=== PATIENT | male | born 1965 | race Caucasian/White ===

== ENCOUNTER 2020-11-04 17:55 | Outpatient (REF) | payer OTHER, SELFPAY | END 2020-11-04 17:56 | disposition home or self-care (01) | LOC: HO.LNP 17:55 | PROVIDERS: Visit Provider Family Medicine | DX: Z20.822 Contact with and (suspected) exposure to COVID-19 (principal); B34.9 Viral infection, unspecified | CPT/HCPCS: U0003; U0005 ==

== ENCOUNTER 2023-08-12 08:27 | Outpatient (AMB) | payer OTHER, SELFPAY ==
--- NOTE | 2023-08-12 08:37 | MHC.PC.OV ---
Vital Signs 08/12/23 08:50 08/12/23 09:10 Height 5 ft 9 in Weight 218 lb BMI 32.2 BP 152/80 H 104/60 Blood Pressure Location Rt brachial Lt brachial Position Sitting Sitting Respiration 13 Pulse 56 Pulse Source Pulse Oximeter Temp 97.2 F Temp Source Temporal Artery Scan Pulse Oximetry (%) 96 Oxygen Delivery Method Room Air Intake Visit Reasons: est care Intake Note: Patient is here to establish care, patient reports he has no concerns at this time. Child Care Leader Required: No Accompanied by: Self / Same As Patient Allergies No Known Allergies Allergy (Verified 08/12/23 08:59) Medication List - Last Reconciled 08/12/23 by GUSTAVO Carson No Known Home Meds Tobacco use date assessed: 08/12/23 Dental Screening Dental Screen Date: 08/12/23 Did you have a dental visit in the last 12 months?: Yes Did you have a dental problem in the last 6 months where you did not have access to dental care?: No Was dental information given to patient?: Patient has dentist HPI HPI Comments History of Present Illness Details 58 y/o M with no known medical history. Surgery - denies. Health Maintenance: Colon reports done about 10 years ago; normal as far as he knows. Referred for repeat. Specialists: None Here today to est care and for a CPE No previous medical records. [facility] Medical History (Updated 08/12/23 @ 09:57 by GUSTAVO Carson) No pertinent family history Surgical History (Updated 08/12/23 @ 09:00 by Guera Ricketts CMA) No pertinent past surgical history Social History (Updated 08/12/23 @ 08:57 by Guera Ricketts CMA) Household Members: Spouse and Children Household Members Other:: 2 grandchildren Housing: House Are you a primary child day care center worker to a significant other at home: No Do you presently have visiting nurse or other home services: No 75 years or older and lives alone: No Alcohol intake: current Alcohol intake frequency: a few times a week Alcohol type: beer Patient Tobacco Use Status: Never used Tobacco e-Cigarette/Vaping Use: Never Used Substance Use Type: Marijuana service: Yes ([employer]) Current occupational status: retired Current occupational exposures/hazards: No Gender identity: Male Cognitive needs: No Hearing needs: No Vision needs: No Questionnaire PHQ-9 Over the last 2 weeks, how often have you been bothered by any of the following problems? 1. Little interest or pleasure in doing things: not at all 2. Feeling down, depressed, or hopeless: not at all 3. Trouble falling or staying asleep, or sleeping too much: not at all 4. Feeling tired or having little energy: not at all 5. Poor appetite or overeating: not at all 6. Feeling bad about yourself - or that you are a failure or have let yourself or your family down: not at all 7. Trouble concentrating on things, such as reading the newspaper or watching television: not at all 8. Moving or speaking so slowly that other people could have noticed. Or the opposite - being so fidgety or restless that you have been moving around a lot more than usual: not at all 9. Thoughts that you would be better off or of hurting yourself in some way: not at all Total score: 0 Depression Screening Interpretation: Negative Depression Screening Done: Yes 60793 - PHQ-9 Billing: Yes Source: Developed by Drs. Ronald Kumar, Barbara Nelson, Louis Garcia and colleagues, with an educational suzette from [employer]. Thrive Questionnaire Date Thrive assessed: 08/12/23 I am a: Patient What is your living situation today?: I have a steady place to live Within the past 12 months, did the food you bought not last and you didn't have the money to get more?: Never true Within the past 12 months, did you worry whether your food would run out before you got money to buy more?: Never true Do you have trouble paying for medicines?: No Do you have trouble getting transportation to medical appointments?: No Do you have trouble paying your heating and electricity bill?: No Do you have trouble taking care of your child, family member or friend?: No Do you have trouble with day-to-day activities such as bathing, preparing meals, shopping, managing finances, etc.?: No Are you currently unemployed and looking for a job?: No Are you interested in more education?: No Please select the resources that you would like help with: None Currently or been in a relationship where the following occur: no concerns reported THRIVE Score: 0 AUDIT C Alcohol Use Questionnaire (AUDIT-C) 1. How often do you have a drink containing alcohol?: 2-3 times a week 2. How many drinks containing alcohol do you have on a typical day when you are drinking?: 1 or 2 3. How often do you have six or more drinks on one occasion?: Never Total Score: 3 Score Reviewed/Action Taken: Yes VERONICA-7 AMB Questionnaire VERONICA-7 Date VERONICA - 7 assessed: 08/12/23 Feeling nervous, anxious, or on edge: 0 = Not at all Not being able to stop or control worryin = Not at all Worrying too much about different things: 0 = Not at all Trouble relaxin = Not at all Being so restless that it is hard to sit still: 0 = Not at all Becoming easily annoyed or irritable: 0 = Not at all Feeling afraid as if something awful might happen: 0 = Not at all Total VERONICA-7 score (0-4 normal; 5-9 mild; 10-14 moderate; 15-21 severe): 0 Source: Developed by Drs. Ronald Kumar, Barbara Nelson, Louis Garcia and colleagues, with an educational suzette from [employer]. VERONICA-7 Assessment Billing VERONICA-7 Assessment Tool: VERONICA-7 Assessment 39604 Review of Systems Const Details: Constitutional: Denies fever. Skin: Denies rash. Eye: Denies eye pain. ENMT: Denies sore throat and nasal congestion. Respiratory: Denies shortness of breath and cough. Gastrointestinal: Denies nausea, vomiting or abdominal pain. Cardiovascular: Denies chest pain and syncope. Genitourinary: Denies dysuria. Musculoskeletal: Denies back pain and extremity pain. Neurologic: Denies headaches, confusion, and weakness. Psychiatric: Denies suicidal thoughts and substance abuse. Allergy/ Immunologic: Denies impaired immunity. Physical exam (Primary Care) Vital Signs: Last Vital Signs Temp 97.2 F 08/12/23 08:50 Pulse 56 08/12/23 08:50 Resp 13 08/12/23 08:50 BP 104/60 08/12/23 09:10 Pulse Ox 96 08/12/23 08:50 Oxygen Delivery Method Room Air 08/12/23 08:50 BMI result Body Mass Index 32.2 BMI Assessment/Plan discussion: High BMI High, discussed plan: lifestyle Tobacco/Smoking Status: Tobacco use Status Tobacco use date assessed 08/12/23 08/12/23 08:55 Patient Tobacco Use Status Never used Tobacco 08/12/23 08:57 e-Cigarette/Vaping Use Never Used 08/12/23 08:57 PHQ-9: PHQ-9 Score PHQ-9: Total score 0 08/12/23 09:50 Depression Screening Interpretation: Negative Thrive Assessment: Date of Thrive Assessment Date Thrive assessed 08/12/23 08/12/23 08:55 Currently or been in a relationship where the following occur: no concerns reported Advance Care Planning discussion: Exists, not on file Date of discussion: 08/12/23 Who was present: self Forms completed: Health Care Proxy and MOLST Time spent: 1-15 minutes, not on file Actual minutes spent: 10 Const Other: General: Well developed, well nourished, in no acute distress. Appears stated age. Head: Normocephalic, atraumatic. Eyes: Pupils are equal, round and reactive to light and accommodation. Conjunctivae are clear. Vision grossly normal. Ears: TMs clear AU, EACS WNL Nose: Patent, without discharge. Mouth: There are no ulcers or lesions noted. No inflammation, no post nasal drip, no plaques nor exudates. Neck: Supple, no adenopathy or thyromegaly. Lungs: Clear to auscultation bilaterally. No rales, rhonchi or wheeze noted. Good air flow in all [place]. Heart: Regular rate and rhythm. No murmurs, click, rubs or gallops are noted. Abdomen: Bowel sounds present in all quadrants. The abdomen is soft, nontender, with no masses or organomegaly noted. No hernias are noted. Musculoskeletal: Joints are nontender, without swelling, redness, or effusions. Range of motion is observed to be normal. Pulses: Peripheral pulses are equal and palpable bilaterally. Extremities: No clubbing, cyanosis nor edema is noted. Neurologic: Gait and station normal. Cranial Nerves 2-12 intact. Motor strength grossly symmetrical and intact. No sensory loss. Balance normal. Skin: No rashes, ulcers, or lesions noted. Turgor is good. Skin color is good. Hair and nails are without abnormalities. Psych: Normal eye contact, affect and mood appropriate, and normal interactions. Patient is alert and appropriate to context. Assessment and Plan Assessment & Plan (1) Routine physicl lab exam: Code(s): Z00.00 - Encounter for general adult medical examination without abnormal findings (2) Colon cancer screening: Code(s): Z12.11 - Encounter for screening for malignant neoplasm of colon (3) Laboratory exam ordered as part of routine general medical examination: Code(s): Z00.00 - Encounter for general adult medical examination without abnormal findings (4) BMI 32.0-32.9,adult: Code(s): Z68.32 - Body mass index [BMI] 32.0-32.9, adult Orders: Orders Comprehensive Met. Panel Today Z00.00 - Encounter for general adult medical examination without abnormal findings LDL Cholesterol Direct Today Z00.00 - Encounter for general adult medical examination without abnormal findings Hemoglobin A1c Today Z00.00 - Encounter for general adult medical examination without abnormal findings Microalbumin, Random (w Creat) Today Z00.00 - Encounter for general adult medical examination without abnormal findings TSH reflex Free T4 Today Z00.00 - Encounter for general adult medical examination without abnormal findings Vitamin D 1,25 dihydroxy Today Z00.00 - Encounter for general adult medical examination without abnormal findings PSA, Ultra Sensitive Today Z00.00 - Encounter for general adult medical examination without abnormal findings Referrals Gastroenterology Referral Z12.11 - Encounter for screening for malignant neoplasm of colon Patient Instructions: RTO 1 YEAR FOR CPE, SOONER PRN Health screenings for men ages 40 to 64 You should visit your health care provider regularly, even if you feel healthy. The purpose of these visits is to: Screen for medical issues Assess your risk for future medical problems Encourage a healthy lifestyle Update vaccinations and other preventive care services Help you get to know your provider in case of an illness Information Even if you feel fine, you should still see your provider for regular checkups. These visits can help you avoid problems in the future. For example, the only way to find out if you have high blood pressure is to have it checked regularly. High blood sugar and high cholesterol level also may not have any symptoms in the early stages. Simple blood tests can check for these conditions. There are specific times when you should see your provider or receive specific health screenings. The [place] Preventive Services Task Force publishes a list of recommended screenings. Below are screening guidelines for men ages 40 to 64. BLOOD PRESSURE SCREENING Have your blood pressure checked at least once every year. Watch for blood pressure screenings in your area. Ask your provider if you can stop in to have your blood pressure checked. Ask your provider if you need your blood pressure checked more often if: You have diabetes, heart disease, kidney problems, or are overweight or have certain other health conditions You have a first-degree relative with high blood pressure You are Black Your blood pressure top number is from 120 to 129 mm Hg, or the bottom number is from 70 to 79 mm Hg If the top number is 130 mm Hg or greater or the bottom number is 80 mm Hg or greater, this is considered stage 1 hypertension. Schedule an appointment with your provider to learn how you can lower your blood pressure. Effects of age on blood pressure CHOLESTEROL SCREENING Cholesterol screening should begin at age 35 for men with no known risk factors for coronary heart disease. Repeat cholesterol screening should take place: Every 5 years for men with normal cholesterol levels More often if changes occur in lifestyle (including weight gain and diet) More often if you have diabetes, heart disease, kidney problems, or certain other conditions COLORECTAL CANCER SCREENING If you are under age 45, talk to your provider about getting screened. You may need to be screened if you have a strong family history of colon cancer or polyps. Screening may also be considered if you have risk factors such as a history of inflammatory bowel disease or polyps. If you are age 45 to 75, you should be screened for colorectal cancer. There are several screening tests available: A stool-based fecal occult blood (gFOBT) or fecal immunochemical test (FIT) every year A stool sDNA test every 1 to 3 years Flexible sigmoidoscopy every 5 years or every 10 years with stool testing FIT done every year CT colonography (virtual colonoscopy) every 5 years Colonoscopy every 10 years You may need a colonoscopy more often if you have risk factors for colorectal cancer, such as: Ulcerative colitis A personal or family history of colorectal cancer A history of growths in your colon called adenomatous polyps DENTAL EXAM Go to the dentist once or twice every year for an exam and cleaning. Your dentist will evaluate if you have a need for more frequent visits. DIABETES SCREENING All adults who do not have risk factors for diabetes should be screened starting at age 35 and repeated every 3 years. If you have other risk factors for diabetes, such as a first degree relative with diabetes, overweight or obesity, high blood pressure, prediabetes, or a history of heart disease, you may be tested more often. If you are overweight and have other risk factors, such as high blood pressure and are planning to become , screening is recommended. EYE EXAM Have an eye exam every 2 to 4 years ages 40 to 54 and every 1 to 3 years ages 55 to 64. Your provider may recommend more frequent eye exams if you have vision problems or glaucoma risk. Have an eye exam that includes an examination of your retina (back of your eye) at least every year if you have diabetes. IMMUNIZATIONS Commonly needed vaccines include: Flu shot: get one every year COVID-19 vaccine: ask your provider what is best for you Tetanus-diphtheria and acellular pertussis (Tdap) vaccine: have as one of your tetanus-diphtheria vaccines if you did not receive it as an adolescent Tetanus-diphtheria: have a booster (or Tdap) every 10 years Varicella vaccine: receive 2 doses if you never had chickenpox or the varicella vaccine and were born in 1979 or after Hepatitis B vaccine: receive 2, 3, or 4 doses, depending on your exact circumstances, if you did not receive these as a child or adolescent, until age 59 Shingles (herpes zoster) vaccine: at or after age 50 Ask your provider if you should receive other immunizations, especially if you have certain medical conditions, such as diabetes or are at increased risk for some diseases such as pneumonia. INFECTIOUS DISEASE SCREENING Screening for hepatitis C: all adults ages 18 to 79 should get a one-time test for hepatitis C. Screening for human immunodeficiency virus (HIV): all people ages 15 to 65 should get a one-time test for HIV. Depending on your lifestyle and medical history, you may need to be screened for infections such as syphilis, chlamydia, and other infections. LUNG CANCER SCREENING You should have an annual screening for lung cancer with low-dose computed tomography (LDCT) if: You are age 50 to 80 years AND You have a 20 pack-year smoking history AND You currently smoke or have quit within the past 15 years OSTEOPOROSIS SCREENING If you are age 50 to 64 and have risk factors for osteoporosis, you should discuss screening with your provider. Risk factors can include long-term steroid use, low body weight, smoking, heavy alcohol use, having a fracture after age 50, or a family history of hip fracture or osteoporosis. Osteoporosis PHYSICAL EXAM All adults should visit their provider from time to time, even if they are healthy. The purpose of these visits is to: Screen for diseases Assess risk of future medical problems Encourage a healthy lifestyle Update vaccinations and other preventive care services Maintain a relationship with a provider in case of an illness Your height, weight, and body mass index (BMI) should be checked at every exam. During your exam, your provider may ask you about: Depression and anxiety Diet and exercise Alcohol and tobacco use Safety, such as use of seat belts and smoke detectors Your medicines and risk for interactions PROSTATE CANCER SCREENING If you're 55 through 69 years old, before having the test, talk to your provider about the pros and cons of having a PSA test. Ask about: Whether screening decreases your chance of dying from prostate cancer. Whether there is any harm from prostate cancer screening, such as side effects from testing or overtreatment of cancer when discovered. Whether you have a higher risk of prostate cancer than others. If you are age 55 or younger, screening is not generally recommended. You should talk with your provider about if you have a higher risk for prostate cancer. Risk factors include: Having a family history of prostate cancer (especially a brother or father) Being If you choose to be tested, the PSA blood test is repeated over time (yearly or less often), though the best frequency is not known. Prostate examinations are no longer routinely done on men with no symptoms. Prostate cancer SKIN EXAM Your provider may check your skin for signs of skin cancer, especially if you're at high risk. People at high risk include those who have had skin cancer before, have close relatives with skin cancer, or have a weakened immune system. TESTICULAR EXAM The [place] Preventive Services Task Force (USPSTF) now recommends against performing testicular self-exams. Doing testicular self-exams has been shown to have little to no benefit. Review Patient declined Pneumococcal Vaccine: 08/12/23 Flu Vaccine not done: patient reason Declined TDap/Td: 08/12/23 Coding Level of Care Code New Pt Prev Care 40-64y(76036) Diagnoses Routine physicl lab exam Z00.00 Colon cancer screening Z12.11 Laboratory exam ordered as part of routine general medical examination Z00.00 BMI 32.0-32.9,adult Z68.32 Additional Codes VERONICA-7 Assessment Billing - VERONICA-7 Assessment Tool: VERONICA-7 Assessment 49883 ([id number]) Vital Signs *Quality* - Advance Care Planning discussion: Exists, not on file ([id number]) Vital Signs *Quality* - Time spent: 1-15 minutes, not on file ([id number])
[2023-08-12 08:50] VITALS: BP 152/80; PULSE 56; RESP 13; TEMP 36.2; O2SAT 96; BMI 32.2
[2023-08-12 09:10] VITALS: BP 104/60
== END 2023-08-12 09:34 | disposition home or self-care (01) ==
PROVIDERS: PCP Nurse Practitioner Family; Visit Provider Nurse Practitioner Family
DX: Z00.00 Encounter for general adult medical examination without abnormal findings (principal); Z12.11 Encounter for screening for malignant neoplasm of colon; Z68.32 Body mass index [BMI] 32.0-32.9, adult
CPT/HCPCS: 1123F; 1124F; 99386

== ENCOUNTER 2023-08-12 09:23 | Outpatient (REF) | payer OTHER, SELFPAY ==
[2023-08-12 11:53] LABS: Estimated Average Glucose 134 mg/dL; Hemoglobin A1c % 6.3 % (<6.0)
[2023-08-12 12:15] LABS: Alanine Aminotransferase 41 U/L (0-40); Albumin Level 4.3 g/dL (3.5-5.0); Alkaline Phosphatase 59 U/L (39-117); Anion Gap 11 (12-20); Aspartate Amino Transferase 26 U/L (5-37); Bilirubin Total 0.4 mg/dL (0.0-1.0); Blood Urea Nitrogen 23 mg/dL (9-16); Calcium 9.4 mg/dL (8.4-10.2); Carbon Dioxide 25 mmol/L (22-29); Chloride 106 mmol/L (96-108); Estimated Glomerular Filt Rate > 60; Glucose Random 148 mg/dL (60-115); Potassium 4.3 mmol/L (3.3-5.1); Sodium 138 mmol/L (135-145); Total Protein 7.3 g/dL (6.5-8.0)
[2023-08-12 12:16] LABS: TSH reflex Free T4 2.35 uIU/mL (0.32-4.0)
[2023-08-12 12:29] LABS: Creatinine Urine 167.54 mg/dL; Microalbum/Creatinine Ratio Ur 2.9 ug/mg cr (<30)
[2023-08-13 14:39] LABS: LDL Cholesterol Direct 129 mg/dL (<100)
[2023-08-16 13:23] LABS: VITAMIN D (1,25 OH) D3 18 pg/mL; Vit D (1,25-Dihydroxy) Total 18 pg/mL (18-72); Vitamin D (1,25 OH) D2 <8 pg/mL
[2023-08-17 23:24] LABS: PSA, Ultra Sensitive 1.12 ng/mL
== END 2023-08-12 09:24 | disposition home or self-care (01) ==
LOC: HO.WFDLDS 09:23
PROVIDERS: Visit Provider Nurse Practitioner Family
DX: Z00.00 Encounter for general adult medical examination without abnormal findings (principal); Z12.5 Encounter for screening for malignant neoplasm of prostate
CPT/HCPCS: 36415; 80053; 82043; 82570; 82652; 83036; 83721; 84153; 84443

== ENCOUNTER 2023-12-29 08:28 | Outpatient (AMB) | payer OTHER, SELFPAY ==
--- NOTE | 2023-12-29 08:32 | MHC.PC.OV ---
Vital Signs 12/29/23 08:34 Height 5 ft 9 in Weight 215 lb BMI 31.7 BP 122/72 Blood Pressure Location Lt brachial Position Sitting Respiration 14 Pulse 58 Pulse Source Pulse Oximeter Pulse Oximetry (%) 98 Oxygen Delivery Method Room Air Intake Visit Reasons: follow up labs Intake Note: follow up on labs Allergies No Known Allergies Allergy (Verified 12/29/23 08:34) Medication List - Last Reconciled 12/29/23 by Anca Barnett, [facility] cholecalciferol (vitamin D3) 1,250 mcg PO QWEEK Tobacco use date assessed: 08/12/23 Dental Screening Dental Screen Date: 08/12/23 HPI HPI Comments History of Present Illness Details 58 y/o M with prediabetes, hyperlipidemia, Vit D Def, pre glaucoma right eye, positive rheumatoid factor, seasonal allergies, previous cocaine use, erectile dysfunction, diverticulosis, osteoarthritis of bilat hips and knees Health Maintenance: Colonoscopy 03/27/2014, 10 year recall Tdap 12/2023 Specialists: Rheum Here today to fu on chronic conditions No changes since last office visit. Due for repeat labs and will get them done today completed Vitamin D supplement No falls, ED or hospital visits. Was having left knee pain, started walking and exercising, using compression + relief. Has lost weight. Has GI repeat colon appt 01/2024 Due for Tdap Labs from 08/12/2023 show normal electrolytes, mild elevation in the BUN of 23 with normal creatinine and GFR, elevated random glucose 148, Hga1c 6.3%, elevated ALT 41 with a normal AST and alk-phos normal TSH, normal urine microalbumin creatinine ratio, direct LDL 129, low Vit d, PSA normal Exam: Awake alert NAD scleras nonicteric bilat no carotid bruit bilat MMM RRR LS CTAB Abd soft, nontender BLE hairless, skin intact, no edema Plan: Tdap today labs done today and resulted after patient left, Show normal electrolytes, normal renal function, fasting glucose of 129 with improved hemoglobin A1c 6.1%, mild elevation in his liver enzymes AST 38, ALT 49, elevated triglycerides 713, total cholesterol 349, unable able to calculate the LDL given the elevation in triglycerides, HDL 44, vitamin-D pending Patient will be called w/ results. I have sent in Rx for Atorvastatin 40mg QD. Etoh cessation is required and encouraged along w/ lifestyle mods. will review vit d levels when results are available. RTO 4 months w/ repeat labs 07/2024 for CPE This note is constructed using voice recognition software. While every effort has been made to ensure accuracy in head of insight, still errors may have been included Sometimes, these errors may affect the content or meaning of the given sentence . Total time spent caring for the patient today was 34 minutes. This includes time spent before the visit reviewing the chart, time spent during the visit, and time spent after the visit on documentation [facility] Medical History (Updated 12/29/23 @ 09:11 by [facility]H [facility] No pertinent family history Surgical History (Updated 08/12/23 @ 09:00 by Guera Ricketts CMA) No pertinent past surgical history Social History (Updated 08/12/23 @ 08:57 by Guera Ricketts CMA) Household Members: Spouse and Children Household Members Other:: 2 grandchildren Housing: House Are you a primary respiratory care assistant to a significant other at home: No Do you presently have visiting nurse or other home services: No 75 years or older and lives alone: No Alcohol intake: current Alcohol intake frequency: a few times a week Alcohol type: beer Patient Tobacco Use Status: Never used Tobacco e-Cigarette/Vaping Use: Never Used Substance Use Type: Marijuana service: Yes ([employer]) Current occupational status: retired Current occupational exposures/hazards: No Gender identity: Male Cognitive needs: No Hearing needs: No Vision needs: No Questionnaire Thrive Questionnaire Date Thrive assessed: 08/12/23 VERONICA-7 AMB Questionnaire VERONICA-7 Date VERONICA - 7 assessed: 08/12/23 Source: Developed by Drs. Ronald Kumar, Barbara Nelson, Louis Garcia and colleagues, with an educational suzette from [employer]. Physical exam (Primary Care) Vital Signs: Last Vital Signs Pulse 58 12/29/23 08:34 Resp 14 12/29/23 08:34 BP 122/72 12/29/23 08:34 Pulse Ox 98 12/29/23 08:34 Oxygen Delivery Method Room Air 12/29/23 08:34 BMI result Body Mass Index 31.7 Tobacco/Smoking Status: Tobacco use Status Tobacco use date assessed 08/12/23 12/29/23 08:37 Patient Tobacco Use Status Never used Tobacco 12/29/23 08:37 e-Cigarette/Vaping Use Never Used 12/29/23 08:37 Thrive Assessment: Date of Thrive Assessment Date Thrive assessed 08/12/23 12/29/23 08:37 Immunizations Boostrix Tdap 2.5 Lf unit-8 mcg-5 Lf/0.5 mL intramuscular syringe Performing Provider: GUSTAVO Carson Performing Location: [facility] Administered by: Zelda Lugo RN on 12/29/23 09:18 Dose Route Admin Location Dispensed Lot Number Expiration Date NDC Patient Service Specialist 0.5 mL IM Left Deltoid 0.5 mL [id number] 02/01/26 [id number] [employer] VIS Given Date VIS Provided VIS Publication Date 12/29/23 Single Vaccine 20 Eligibility Eligibility Date Funding Source Not VFC Eligible 12/29/23 Private Assessment and Plan Assessment & Plan (1) Hyperlipidemia: Code(s): E78.5 - Hyperlipidemia, unspecified Qualifiers: Hyperlipidemia type: moderate mixed hyperlipidemia not requiring statin therapy Qualified Code(s): E78.2 - Mixed hyperlipidemia (2) Vitamin D deficiency: Code(s): E55.9 - Vitamin D deficiency, unspecified (3) Prediabetes: Comment: 07/2023 hga1c 6.3% Code(s): R73.03 - Prediabetes Orders: Orders TDaP Immunization Today Z23 - Encounter for immunization Comprehensive [place]. Panel Fast 04/26/24 E55.9 - Vitamin D deficiency, unspecified, E78.2 - Mixed hyperlipidemia, R73.03 - Prediabetes Lipid Panel 04/26/24 E55.9 - Vitamin D deficiency, unspecified, E78.2 - Mixed hyperlipidemia, R73.03 - Prediabetes Hemoglobin A1c 04/26/24 E55.9 - Vitamin D deficiency, unspecified, E78.2 - Mixed hyperlipidemia, R73.03 - Prediabetes Medications: New atorvastatin 40 mg PO BEDTIME 90 tabs 1RF Review Flu Vaccine not done: patient reason Coding Level of Care Code Est Pt Level 4 (97261) Diagnoses Moderate mixed hyperlipidemia not requiring statin therapy E78.2 Hyperlipidemia type: moderate mixed hyperlipidemia not requiring statin therapy Vitamin D deficiency E55.9 Prediabetes R73.03
[2023-12-29 08:34] VITALS: BP 122/72; PULSE 58; RESP 14; O2SAT 98; BMI 31.7
== END 2023-12-29 09:22 | disposition home or self-care (01) ==
PROVIDERS: PCP Nurse Practitioner Family; Visit Provider Nurse Practitioner Family
DX: E78.2 Mixed hyperlipidemia (principal); E55.9 Vitamin D deficiency, unspecified; R73.03 Prediabetes; Z23 Encounter for immunization
CPT/HCPCS: 90471; 90715; 99214

== ENCOUNTER 2023-12-29 09:18 | Outpatient (REF) | payer OTHER, SELFPAY ==
[2023-12-29 11:30] LABS: Estimated Average Glucose 128 mg/dL; Hemoglobin A1c % 6.1 % (<6.0)
[2023-12-29 11:39] LABS: Alanine Aminotransferase 49 U/L (0-40); Albumin Level 4.3 g/dL (3.5-5.0); Alkaline Phosphatase 65 U/L (39-117); Anion Gap 15 (12-20); Aspartate Amino Transferase 38 U/L (5-37); Bilirubin Total 0.3 mg/dL (0.0-1.0); Blood Urea Nitrogen 17 mg/dL (9-16); Calcium 9.7 mg/dL (8.4-10.2); Carbon Dioxide 22 mmol/L (22-29); Chloride 107 mmol/L (96-108); Cholesterol 349 mg/dL (<200); Estimated Glomerular Filt Rate > 60; Glucose Fasting 129 mg/dL (60-99); HDL Cholesterol 44 mg/dL (>40); Potassium 4.9 mmol/L (3.3-5.1); Sodium 139 mmol/L (135-145); Total Protein 7.4 g/dL (6.5-8.0); Triglycerides 713 mg/dL (<150)
[2024-01-02 13:32] LABS: VITAMIN D (1,25 OH) D3 26 pg/mL; Vit D (1,25-Dihydroxy) Total 26 pg/mL (18-72); Vitamin D (1,25 OH) D2 <8 pg/mL
== END 2023-12-29 09:19 | disposition home or self-care (01) ==
LOC: HO.WFDLDS 09:18
PROVIDERS: Visit Provider Nurse Practitioner Family
DX: R73.03 Prediabetes (principal); E55.9 Vitamin D deficiency, unspecified; E78.5 Hyperlipidemia, unspecified
CPT/HCPCS: 36415; 80053; 80061; 82652; 83036

== ENCOUNTER 2024-02-10 09:22 | Outpatient (AMB) | payer OTHER, SELFPAY ==
[2024-02-10 09:25] VITALS: BP 166/77; PULSE 51; BMI 31.9
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
== END 2024-02-10 10:10 | disposition home or self-care (01) ==
PROVIDERS: PCP Nurse Practitioner Family; Visit Provider Nurse Practitioner
DX: Z83.719 Family history of colon polyps, unspecified (principal)
CPT/HCPCS: 99203

== ENCOUNTER → 2024-02-10 09:22 | Outpatient (BNVA) | payer OTHER, SELFPAY | PROVIDERS: PCP Nurse Practitioner Family; Visit Provider Nurse Practitioner | DX: Z01.818 Encounter for other preprocedural examination (principal); Z83.719 Family history of colon polyps, unspecified | CPT/HCPCS: 99202 ==

== ENCOUNTER 2024-05-01 08:25 | Outpatient (AMB) | payer OTHER, SELFPAY ==
--- NOTE | 2024-05-01 08:29 | MHC.PC.OV ---
Vital Signs 05/01/24 08:32 Height 5 ft 9 in Weight 224 lb 2 oz BMI 33.1 BP 137/76 Blood Pressure Location Lt brachial Position Sitting Respiration 13 Pulse 60 Pulse Source Pulse Oximeter Pulse Oximetry (%) 96 Oxygen Delivery Method Room Air Intake Visit Reasons: 4 MONTHS FU 30 MIN CHRONIC CONDITIONS Intake Note: 4 month follow up Internetworking Technician Required: No Allergies No Known Allergies Allergy (Verified 05/01/24 08:41) Medication List - Last Reconciled 05/01/24 by ASHUTOSH Carson- atorvastatin 40 mg PO BEDTIME multivitamin 1 tab PO DAILY sodium,potassium,mag sulfates 17.5-3.13-1.6 gram (Suprep Bowel Prep Kit) 480 mL orally; FOR COLONOSCOPY PREP Tobacco use date assessed: 08/12/23 Dental Screening Dental Screen Date: 08/12/23 HPI HPI Comments History of Present Illness Details 59 y/o M with prediabetes, hyperlipidemia, Vit D Def, pre glaucoma right eye, positive rheumatoid factor, seasonal allergies, previous cocaine use, erectile dysfunction, diverticulosis, osteoarthritis of bilat hips and knees Health Maintenance: Colonoscopy 03/27/2014, 10 year recall; colon scheduled 05/2024 @ [facility] Tdap 12/2023 Flu declined ACP: MOLST completed today. Healthcare proxy need signature from the primary in the alternate agent. He will bring this with him to the next office visit. Specialists: Rhe[facility] Gi History of Present Illness The patient is a 59-year-old male presenting with prediabetes and hyperlipidemia for follow-up care. He has a history of vitamin D deficiency, which has been managed with a completed course of vitamin D supplementation; he was advised to start a daily multivitamin however he has not done this yet. There have been no significant health changes in recent months, with the patient successfully maintaining his condition through the holidays despite dietary indulgences. His hemoglobin A1c has remained stable at 6.1% over the past several months, showing no progression towards diabetes. He is currently prescribed atorvastatin for hyperlipidemia. However, he reports inconsistent use, as he is still adjusting to the medication. No hospitalizations or emergency room visits have occurred since the last follow-up. Health Maintenance - Encourage regular exercise, considering his interest in using an [employer] machine. - Colonoscopy scheduled for May as per health maintenance guidelines. - Monitoring of hemoglobin A1c with current result at 6.1% indicating stable prediabetes. - Discussion about possible insurance-covered wellness benefits such as gym memberships. Social History - Semi-retired, with involvement in the care of grandchildren. - Indulged in rich foods during holidays, particularly prime rib. - Engages in some form of exercise with an elliptical at home. - Interest in establishing a routine for physical activity. Review of Systems - General: Denies recent hospitalizations or emergency room visits. - Endocrine: Denies symptoms progressing towards diabetes. - Cardiovascular: Denies chest pain or shortness of breath. - Pulm: Reports exposure to asbestos in the past. Wonders about any screening that can be done. Denies any current pulmonary complaints. General: Well developed, well nourished, in no acute distress. Appears stated age. Head: Normocephalic, atraumatic. Eyes: Pupils are equal, round and reactive to light and accommodation. Conjunctivae are clear. Vision grossly normal. Ears: TMs clear AU, EACS WNL Nose: Patent, without discharge. Mouth: There are no ulcers or lesions noted. No inflammation, no post nasal drip, no plaques nor exudates. Neck: Supple, no adenopathy or thyromegaly. Lungs: Clear to auscultation bilaterally. No rales, rhonchi or wheeze noted. Good air flow in all delacruz. Heart: Regular rate and rhythm. No murmurs, click, rubs or gallops are noted. Abdomen: Bowel sounds present in all quadrants. The abdomen is soft, nontender, with no masses or organomegaly noted. No hernias are noted. Musculoskeletal: Joints are nontender, without swelling, redness, or effusions. Range of motion is observed to be normal. Pulses: Peripheral pulses are equal and palpable bilaterally. Extremities: No clubbing, cyanosis nor edema is noted. Neurologic: Gait and station normal. Cranial Nerves 2-12 intact. Motor strength grossly symmetrical and intact. No sensory loss. Balance normal. Skin: No rashes, ulcers, or lesions noted. Turgor is good. Skin color is good. Hair and nails are without abnormalities. Psych: Normal eye contact, affect and mood appropriate, and normal interactions. Patient is alert and appropriate to context. Results - Labs: Hemoglobin A1c - 6.1% (stable from previous levels). Labs resulted today show elevated LFTs, worsening lipid profile. The triglycerides are elevated however this was a nonfasting sample. Otherwise labs stable. Vitamin-D pending. Plan - Continue monitoring prediabetes status with encouragement for stable diet and exercise routine. - Maintain current atorvastatin dose for hyperlipidemia, as inconsistent use precludes assessment for dosage increase. - Recommend men's once-daily multivitamin for vitamin D maintenance. - Encourage utilization of available exercise equipment to establish a consistent routine. - Conduct colonoscopy as scheduled in May. - Consider further consultation with pulmonology due to past asbestos exposure, pending patient's decision. - reduce alcohol intake Patient was informed and verbally consented to the use of an ambient scribe for clinic note documentation during this visit. Discussion Notes During the visit, we discussed the stable nature of the patient's prediabetes, with a hemoglobin A1c of 6.1%, unchanged from prior measurements. I advised that maintaining stable dietary habits and exercise could further support his condition. We reviewed his inconsistent use of atorvastatin and opted to maintain the current dosage pending regular use before lab review. Risks of long-term statin use were detailed, emphasizing common side effects like muscle aches and the lack of substantiated risks of cognitive decline or severe bone health effects given the patient's age. We discussed health maintenance, including a once-daily multivitamin and utilization of available wellness benefits offered by insurance. We also touched on asbestos exposure, indicating the option for a pulmonology referral if he desired. Follow-up steps involve remaining engaged with regular lab work and upcoming screenings. Return to the office in 6 months for CPE, sooner as needed. This note is constructed using voice recognition software. While every effort has been made to ensure accuracy in security services manager, still errors may have been included Sometimes, these errors may affect the content or meaning of the given sentence . Total time spent caring for the patient today was 40 minutes. This includes time spent before the visit reviewing the chart, time spent during the visit, and time spent after the visit on documentation [facility] Medical History (Updated 05/01/24 @ 13:45 [facility] Colon cancer screening Laboratory exam ordered as part of routine general medical examination Routine physicl lab exam No pertinent family history Surgical History (Updated 02/10/24 @ 09:29 by MARIA TERESA Alvarez) Hx of colonoscopy No pertinent past surgical history Social History (Reviewed 02/10/24 @ 09:29 by JULIA Alvarez Household Members: Spouse and Children Household Members Other:: 2 grandchildren Housing: House Are you a primary career guidance technician to a significant other at home: No Do you presently have visiting nurse or other home services: No Alcohol intake: current Alcohol intake frequency: a few times a week Alcohol type: beer Patient Tobacco Use Status: Never used Tobacco e-Cigarette/Vaping Use: Never Used Substance Use Type: Marijuana service: Yes ([employer]) Current occupational status: retired Current occupational exposures/hazards: No Gender identity: Male Cognitive needs: No Hearing needs: No Vision needs: No Questionnaire PHQ-9 Over the last 2 weeks, how often have you been bothered by any of the following problems? 1. Little interest or pleasure in doing things: not at all 2. Feeling down, depressed, or hopeless: not at all 3. Trouble falling or staying asleep, or sleeping too much: not at all 4. Feeling tired or having little energy: not at all 5. Poor appetite or overeating: not at all 6. Feeling bad about yourself - or that you are a failure or have let yourself or your family down: not at all 7. Trouble concentrating on things, such as reading the newspaper or watching television: not at all 8. Moving or speaking so slowly that other people could have noticed. Or the opposite - being so fidgety or restless that you have been moving around a lot more than usual: not at all 9. Thoughts that you would be better off or of hurting yourself in some way: not at all Total score: 0 Depression Screening Interpretation: Negative Depression Screening Done: Yes 69724 - PHQ-9 Billing: Yes Source: Developed by Drs. Ronald Kumar, Barbara Nelson, Louis Garcia and colleagues, with an educational suzette from [employer]. Thrive Questionnaire Date Thrive assessed: 05/01/24 I am a: Patient What is your living situation today?: I have a steady place to live Within the past 12 months, did the food you bought not last and you didn't have the money to get more?: Never true Within the past 12 months, did you worry whether your food would run out before you got money to buy more?: Never true Do you have trouble paying for medicines?: No Do you have trouble getting transportation to medical appointments?: No Do you have trouble paying your heating and electricity bill?: No Do you have trouble taking care of your child, family member or friend?: No Do you have trouble with day-to-day activities such as bathing, preparing meals, shopping, managing finances, etc.?: No Are you currently unemployed and looking for a job?: Yes Are you interested in more education?: No Please select the resources that you would like help with: None Currently or been in a relationship where the following occur: No concerns reported THRIVE Score: 0 AUDIT C Alcohol Use Questionnaire (AUDIT-C) 1. How often do you have a drink containing alcohol?: 2-4 times a month 2. How many drinks containing alcohol do you have on a typical day when you are drinking?: 3 or 4 3. How often do you have six or more drinks on one occasion?: Never Total Score: 3 Score Reviewed/Action Taken: Yes VERONICA-7 AMB Questionnaire VERONICA-7 Date VERONICA - 7 assessed: 05/01/24 Feeling nervous, anxious, or on edge: 0 = Not at all Not being able to stop or control worryin = Not at all Worrying too much about different things: 0 = Not at all Trouble relaxin = Not at all Being so restless that it is hard to sit still: 0 = Not at all Becoming easily annoyed or irritable: 0 = Not at all Feeling afraid as if something awful might happen: 0 = Not at all Total VERONICA-7 score (0-4 normal; 5-9 mild; 10-14 moderate; 15-21 severe): 0 Source: Developed by Drs. Ronald Kumar, Barbara Nelson, Louis Garcia and colleagues, with an educational suzette from [employer]. VERONICA-7 Assessment Billing VERONICA-7 Assessment Tool: VERONICA-7 Assessment 11595 Physical exam (Primary Care) Vital Signs: Last Vital Signs Pulse 60 05/01/24 08:32 Resp 13 05/01/24 08:32 BP 137/76 05/01/24 08:32 Pulse Ox 96 05/01/24 08:32 Oxygen Delivery Method Room Air 05/01/24 08:32 BMI result Body Mass Index 33.1 BMI Assessment/Plan discussion: High BMI High, discussed plan: lifestyle Tobacco/Smoking Status: Tobacco use Status Tobacco use date assessed 08/12/23 05/01/24 08:32 Patient Tobacco Use Status Never used Tobacco 05/01/24 08:32 e-Cigarette/Vaping Use Never Used 05/01/24 08:32 PHQ-9: PHQ-9 Score PHQ-9: Total score 0 05/01/24 09:06 Depression Screening Interpretation: Negative Thrive Assessment: Date of Thrive Assessment Date Thrive assessed 05/01/24 05/01/24 08:32 Currently or been in a relationship where the following occur: No concerns reported Advance Care Planning discussion: Completed/Scanned Date of discussion: 05/01/24 Who was present: self Forms completed: Health Care Proxy and MOLST Time spent: 1-15 minutes, not on file Actual minutes spent: 10 Results AMB Hemoglobin A1c AMB Hemoglobin A1c 6.1 % Last Edit by Daniela Spain MA on 05/01/24 08:43 Results Reviewed Results Reviewed: Laboratory Last Values Hgb A1c (Clinic) 6.1 % (4.0-6.0) H 05/01/24 08:35 Coding Level of Care Code Est Pt Level 5 (69470) Complex EM visit Add On G2211 Diagnoses Moderate mixed hyperlipidemia not requiring statin therapy E78.2 Hyperlipidemia type: moderate mixed hyperlipidemia not requiring statin therapy Vitamin D deficiency E55.9 Prediabetes R73.03 Family history of polyps in the colon Z83.719 BMI 33.0-33.9,adult Z68.33 Class 1 obesity due to excess calories with serious comorbidity and body mass index (BMI) of 33.0 to 33.9 in adult E66.811; E66.09; Z68.33 Obesity type: due to excess calories Serious obesity comorbidity presence: with serious comorbidity ACP (advance care planning) Z71.89 Full code status Z78.9 Physician orders for life-sustaining treatment (POLST) form indicates patient wish for full code resuscitation status Z78.9 Asbestos exposure Z77.090 Additional Codes VERONICA-7 Assessment Billing - VERONICA-7 Assessment Tool: VERONICA-7 Assessment 94490 ([id number]) PHQ-9 - 83611 - PHQ-9 Billing: Yes ([id number]) Vital Signs *Quality* - Advance Care Planning discussion: Completed/Scanned ([id number]) Vital Signs *Quality* - Time spent: 1-15 minutes, not on file ([id number]) Assessment & Plan Assessment & Plan (1) Hyperlipidemia: Code(s): E78.5 - Hyperlipidemia, unspecified Category: Medical Qualifiers: Hyperlipidemia type: moderate mixed hyperlipidemia not requiring statin therapy Qualified Code(s): E78.2 - Mixed hyperlipidemia (2) Vitamin D deficiency: Code(s): E55.9 - Vitamin D deficiency, unspecified Category: Medical (3) Prediabetes: Code(s): R73.03 - Prediabetes Category: Medical (4) Family history of polyps in the colon: Comment: mother one polyp later in life Code(s): Z83.719 - Family history of colon polyps, unspecified Category: Medical (5) BMI 33.0-33.9,adult: Code(s): Z68.33 - Body mass index [BMI] 33.0-33.9, adult Category: Medical (6) Class 1 obesity with body mass index (BMI) of 33.0 to 33.9 in adult: Comment: HLD Code(s): E66.811 - Obesity, class 1; Z68.33 - Body mass index [BMI] 33.0-33.9, adult Category: Medical Qualifiers: Obesity type: due to excess calories Serious obesity comorbidity presence: with serious comorbidity Qualified Code(s): E66.811 - Obesity, class 1; E66.09 - Other obesity due to excess calories; Z68.33 - Body mass index [BMI] 33.0-33.9, adult (7) ACP (advance care planning): Code(s): Z71.89 - Other specified counseling Category: Medical (8) Full code status: Code(s): Z78.9 - Other specified health status Category: Medical (9) Physician orders for life-sustaining treatment (POLST) form indicates patient wish for full code resuscitation status: Code(s): Z78.9 - Other specified health status Category: Medical (10) Asbestos exposure: Code(s): Z77.090 - Contact with and (suspected) exposure to asbestos Category: Medical Plan . Orders: Orders Comprehensive Met. Panel Today E55.9 - Vitamin D deficiency, unspecified, E66.811 - Obesity, class 1, E78.2 - Mixed hyperlipidemia, R73.03 - Prediabetes, Z68.33 - Body mass index [BMI] 33.0-33.9, adult AMB Hemoglobin A1c Today Z13.9 - Encounter for screening, unspecified Vitamin D 1,25 dihydroxy Today E55.9 - Vitamin D deficiency, unspecified, E66.811 - Obesity, class 1, E78.2 - Mixed hyperlipidemia, R73.03 - Prediabetes, Z68.33 - Body mass index [BMI] 33.0-33.9, adult Patient Instructions: Patient Instructions - Continue with prescribed atorvastatin, aim for regular daily intake. - Take a men's once-daily multivitamin with food. - Maintain diet and exercise routine to support stable blood sugar and cholesterol levels. - Schedule and attend the colonoscopy in May. - Consider contacting the office regarding further evaluation for asbestos exposure if desired. - Review wellness benefits through insurance for potential gym membership or exercise program support. - Follow up after lab results or sooner if new symptoms occur.
[2024-05-01 08:32] VITALS: BP 137/76; PULSE 60; RESP 13; O2SAT 96; BMI 33.1
== END 2024-05-01 09:09 | disposition home or self-care (01) ==
PROVIDERS: PCP Nurse Practitioner Family; Visit Provider Nurse Practitioner Family
DX: E78.2 Mixed hyperlipidemia (principal); E55.9 Vitamin D deficiency, unspecified; R73.03 Prediabetes; Z83.719 Family history of colon polyps, unspecified; Z68.33 Body mass index [BMI] 33.0-33.9, adult; E66.811 Obesity, class 1; Z71.89 Other specified counseling; Z78.9 Other specified health status; Z77.090 Contact with and (suspected) exposure to asbestos; Z00.00 Encounter for general adult medical examination without abnormal findings

== ENCOUNTER → 2024-05-01 08:25 | Outpatient (BNVA) | payer OTHER, SELFPAY | PROVIDERS: PCP Nurse Practitioner Family; Visit Provider Nurse Practitioner Family | DX: R73.03 Prediabetes (principal); E78.2 Mixed hyperlipidemia; E55.9 Vitamin D deficiency, unspecified; N52.9 Male erectile dysfunction, unspecified; K57.90 Diverticulosis of intestine, part unspecified, without perforation or abscess without bleeding; M17.0 Bilateral primary osteoarthritis of knee; M16.0 Bilateral primary osteoarthritis of hip; E66.811 Obesity, class 1; Z68.33 Body mass index [BMI] 33.0-33.9, adult; Z71.89 Other specified counseling; Z78.9 Other specified health status; Z77.090 Contact with and (suspected) exposure to asbestos; Z83.719 Family history of colon polyps, unspecified | CPT/HCPCS: 83036; 96127; 99212 ==

== ENCOUNTER 2024-05-01 09:35 | Outpatient (REF) | payer OTHER, SELFPAY ==
[2024-05-01 13:12] LABS: Alanine Aminotransferase 102 U/L (0-40); Albumin Level 4.3 g/dL (3.5-5.0); Alkaline Phosphatase 66 U/L (39-117); Anion Gap 14 (12-20); Aspartate Amino Transferase 90 U/L (5-37); Bilirubin Total 0.5 mg/dL (0.0-1.0); Blood Urea Nitrogen 24 mg/dL (9-16); Calcium 9.5 mg/dL (8.4-10.2); Carbon Dioxide 24 mmol/L (22-29); Chloride 104 mmol/L (96-108); Cholesterol 382 mg/dL (<200); Estimated Glomerular Filt Rate > 60; Glucose Random 140 mg/dL (60-115); HDL Cholesterol 38 mg/dL (>40); Potassium 4.5 mmol/L (3.3-5.1); Sodium 137 mmol/L (135-145); Total Protein 7.4 g/dL (6.5-8.0); Triglycerides 1344 mg/dL (<150)
[2024-05-05 14:43] LABS: VITAMIN D (1,25 OH) D3 19 pg/mL; Vit D (1,25-Dihydroxy) Total 19 pg/mL (18-72); Vitamin D (1,25 OH) D2 <8 pg/mL
== END 2024-05-01 09:36 | disposition home or self-care (01) ==
LOC: HO.WFDLDS 09:35
PROVIDERS: Visit Provider Nurse Practitioner Family
DX: E78.2 Mixed hyperlipidemia (principal); E55.9 Vitamin D deficiency, unspecified; R73.03 Prediabetes; E66.811 Obesity, class 1; Z68.33 Body mass index [BMI] 33.0-33.9, adult
CPT/HCPCS: 36415; 80053; 80061; 82652

== ENCOUNTER 2024-06-06 09:02 | Day surgery (SDC) | payer OTHER, SELFPAY ==
[2024-06-06 10:09] VITALS: BP 138/81; PULSE 63; RESP 12; TEMP 36.6; O2SAT 95; BMI 31.7
[2024-06-06] MEDS: Lactated Ringers 1,000 ML 80 ML IVCONT (10:24)
--- NOTE | 2024-06-06 10:31 | P.HPSUR_ITS ---
Pre-Procedural Eval Section A - 24 Hr Update-Section A only Date of Service: 06/06/24 Section B - Complete if H&P > 30 days Chief Complaint: Family history of colon polyps, Details of Present Illness: PMX Pre diabetes High cholesterol Obesity * SURGICAL HISTORY Colonoscopy - 10 years ago at [facility] study only tics * ALLERGIES: NKDA Present Medications: see Short Stay Collaborative assessment Allergies: Allergies Allergy/AdvReac Type Severity Reaction Status Date / Time No Known Allergies Allergy Verified 06/06/24 10:08 Review of Systems Review of Systems Comment: Ten point ROS negative Exam Exam Comment: Gen appear: No acute distress HEENT: no icterus Chest: No overt resp distress Abd: soft, nontender, nondistended Psych: Stable affect, answering questions appropriately Neuro: A/Ox3 noted to move all extremities spontaneously Ext: no peripheral edema Plan Diagnosis/Plan: Unchanged I have reviewed the history and physical and performed a pertinent physical examination on my patient. No changes have occurred unless specified. Time Spent With Patient Time: Total time managing care of this patient today ____ minutes.
--- NOTE | 2024-06-06 10:52 | HO.ANESPROP2 ---
[facility] Active Problems Active Problems: All Active Problems Asbestos exposure (Acute) Physician orders for life-sustaining treatment (POLST) form indicates patient wish for full code resuscitation status (Acute) Full code status (Acute) ACP (advance care planning) (Acute) Class 1 obesity with body mass index (BMI) of 33.0 to 33.9 in adult (Acute) BMI 33.0-33.9,adult (Acute) Family history of polyps in the colon (Acute) Pre-op examination (Acute) Hyperlipidemia (Acute) Vitamin D deficiency (Acute) Prediabetes (Acute) Past Medical History Medical History Colon cancer screening Laboratory exam ordered as part of routine general medical examination Routine physicl lab exam No pertinent family history Functional capacity: independent ambulation Family History Family history of problems with anesthesia: No Surgical History Surgical History Hx of colonoscopy No pertinent past surgical history History of Problems with Anesthesia: No Social History Social History Household Members: Spouse and Children Household Members Other:: 2 grandchildren Housing: House Are you a primary patient care technician instructor to a significant other at home: No Do you presently have visiting nurse or other home services: No Alcohol intake: current Alcohol intake frequency: 0-2 drinks per day Alcohol type: beer Patient Tobacco Use Status: Never used Tobacco e-Cigarette/Vaping Use: Never Used Use of substances other than those prescribed or required for medical reasons: Yes Substance Use Type: Marijuana Substance Use Frequency: Daily Have you been hit, kicked, punched, or otherwise hurt by someone within the past year? If so, by whom?: No Are you DNR?: No Advance Directives: No Advance Directives Information Provided: Yes Recently lost weight without trying: No Nutrition Risks: No Nutritional Risk Poor oral hygiene: No service: Yes ([employer]) Current occupational status: retired Current occupational exposures/hazards: No Gender identity: Male Cognitive needs: No Hearing needs: No Vision needs: No Meds Allergies Allergy/AdvReac Type Severity Reaction Status Date / Time No Known Allergies Allergy Verified 06/06/24 10:08 Active Medications: Current Medications Lactated Ringer's (Lr) 1,000 mls @ 80 mls/hr IVCONT .[id number] Last Admin: 06/06/24 10:24 Dose: 80 mls/hr Home Medications ?Medication ?Instructions ?Recorded ?Confirmed ?Last Taken ?Type multivitamin 1 tab PO DAILY 05/01/24 06/06/24 Unknown History Exam Height,Weight and Vital Signs: Height 5 ft 9 in Weight 97.522 kg Last Vital Signs Temp 97.9 F 06/06/24 10:09 Pulse 63 06/06/24 10:09 Resp 12 06/06/24 10:09 BP 138/81 06/06/24 10:09 Pulse Ox 95 06/06/24 10:09 O2 Del Method Room Air 06/06/24 10:09 Airway Mallampati Class: III TM Dist: >3cm Neck ROM: Full Heart: RRR Lungs: CTA Assessment and Plan Assessment Anesthesia Assessment: Anesthesia Plan Discussed and Chart Reviewed Final Anesthetic Review Family History of Problems with Anesthesia: No History of Problems with Anesthesia: No NPO: Yes ASA Class: II Final Preanesthetic Review: Meds/Allgs Chart Reviewed, Consent Obtained/Reviewed and Anes Risks/Benef Reviewed Patient Risk: Low Procedure Risk: Low Anesthetic Plan Anesthetic Plan: MAC: Disposition: Standard PACU
--- NOTE | 2024-06-06 11:14 | P.OPN-COLO_ITS ---
Colonoscopy Operative Note Operative Note Date of Service: 06/06/24 Narrative: Procedure: Colonoscopy Indication: Screening Endoscopist: Caty Zambrano MD Anesthesia Provider: Dr Cici Barrow Anesthesia type: MAC Instrument: Olympus [id number]-[id number] Consent: Indication, risks vs benefits, and alternatives were discussed with the patient who gave written informed consent to proceed. EKG, pulse, pulse oximetry and blood pressure were monitored throughout the procedure. Please see anesthesia flowsheet. Procedure: The patient was brought to the procedure room and placed in the left lateral decubitus position. IV medications were administered by the anesthesia provider in attendance. A digital rectal exam was performed which was normal. A distal attachment cap was affixed to the tip of the colonoscope which was then inserted through the anus and advanced through the colon to the cecum at 75 cm,and terminal ileum. Appendiceal orifice and ileocecal valve were identified. Mucosa was carefully examined under high definition white light as the instrument was slowly withdrawn in a retrograde panoramic fashion. Retroflexion was performed in ascending colon and rectum. The procedure was not difficult. There were no immediate obvious complications. The quality of the prep was BBPS: 2+2+3 = adequate Withdrawal time 12 minutes. Limitations: No limitations. Findings: Mucosa: Normal to cecum and terminal ileum. Liquid adherent stool in R colon. Protruding lesions: * Medium internal hemorrhoids without stigmata of recent bleeding. Excavated lesions: * Mild diverticulosis of left sided colon. Impression: 1. Normal colon and terminal ileum mucosa 2. Diverticulosis 3. Internal hemorrhoids Recommendations: - Repeat colonoscopy in 5 years due to quality of prep.
[2024-06-06 11:15] VITALS: BP 111/71; PULSE 57; RESP 16; TEMP 36.3; O2SAT 95
[2024-06-06 11:30] VITALS: BP 123/81; PULSE 51; RESP 16; TEMP 36.1; O2SAT 98
== END 2024-06-06 12:17 | disposition home or self-care (01) ==
PROVIDERS: PCP Nurse Practitioner Family; Visit Provider Internal Medicine
PROC: 0DJD8ZZ Inspection of Lower Intestinal Tract, Via Natural or Artificial Opening Endoscopic (ICD-10-PCS; CPT 45378; principal; 2024-06-06 11:00)
DX: Z12.11 Encounter for screening for malignant neoplasm of colon (principal); K64.8 Other hemorrhoids; K57.30 Diverticulosis of large intestine without perforation or abscess without bleeding; Z83.719 Family history of colon polyps, unspecified; E11.9 Type 2 diabetes mellitus without complications; E78.5 Hyperlipidemia, unspecified; E55.9 Vitamin D deficiency, unspecified; Z79.02 Long term (current) use of antithrombotics/antiplatelets; Z79.899 Other long term (current) drug therapy
CPT/HCPCS: 45378; J2003; J2704

== ENCOUNTER → 2024-06-06 09:02 | Outpatient (BNV) | payer OTHER, SELFPAY | PROVIDERS: PCP Nurse Practitioner Family; Visit Provider Internal Medicine | DX: Z12.11 Encounter for screening for malignant neoplasm of colon (principal); K57.30 Diverticulosis of large intestine without perforation or abscess without bleeding; K64.8 Other hemorrhoids | CPT/HCPCS: 45378 ==

== ENCOUNTER 2024-09-21 11:18 | Outpatient (AMB) | payer OTHER, SELFPAY ==
--- NOTE | 2024-09-21 11:22 | A.OFFPC_ITS ---
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 Allergies No Known Allergies Allergy (Verified 09/21/24 11:31) Medication List - Last Reconciled 09/21/24 by ASHUTOSH Carson- atorvastatin 40 mg PO BEDTIME multivitamin 1 tab PO DAILY Tobacco use date assessed: 09/21/24 Dental Screening Dental Screen Date: 09/21/24 Did you have a dental visit in the last 12 months?: Yes Did you have a dental problem in the last 6 months where you did not have access to dental care?: No Was dental information given to patient?: Patient has dentist HPI HPI Comments 2 History of Present Illness0 Details 59 y/o M with prediabetes, hyperlipidemi a, Vit D Def, pre glaucoma right eye, positive rheumatoid factor, seasonal allergies, previous cocaine use, erectile dysfunction, diverticulosis, osteoarthritis of bilat hips and knees Family hx: son had a stroke; may need heart surgery. otherwise no changes Social: , has children, semi-retired; has custody of sons children Health Maintenance: Colonoscopy 05/06/24 Normal colon and terminal ileum mucosa, Diverticulosis, Internal hemorrhoids repeat colonoscopy in 5 years due to quality of prep. Tdap 12/2023 Flu declined ACP: MOLST completed today. Healthcare proxy need signature from the primary in the alternate agent. He will bring this with him to the next office visit. Specialists: Rheum Gi Specialists: Rheum in the past History of Present Illness - The patient is a 59-year-old male pres enting for a complete physical exam. - Hyperlipidemia: On atorvastatin 40 mg daily, with noted non-adherence. - Vitamin D deficiency: Taking a multivi tamin for supplementation. - Prediabetes: Managed with diet; A1c is 6.3%. today - Skin - Left arm he has had areas re moved from right side of nose in the past - unsure of patho. Mom had skin cancer, nonmelanoma -Optho wears glasses, last exam a few ye ars ago. No issues Health Maintenance - A1c today was 6.3%; previously 6.1% in April, and 6.3% in July 2023. - Colonoscopy completed, with a follow-u p recommended in five years due to suboptimal prep. - Patient advised on the importance of c onsistent atorvastatin intake and fluid consumption. Review of Systems - Constitutional: Denies any significant weight change or fatigue. Reports occasional dizziness with position change, possibly due to low fluid intake. - Expressed sadness due to a family memb er's health situation - Eyes: Reports no vision issues, althou gh last eye exam was a couple of years ago. - Skin: Reports a suspicious lesion on t he left arm. - Cardiovascular: Reports occasional diz ziness with position changes. - Gastrointestinal: Reports occasional c onstipation. Physical Exam See below. Left Antecubital Left ankle Right lower leg Results - Labs: A1c is 6.3%, Discussion Notes I discussed the importance of managing hyperlipidemia and prediabetes with the patient, emphasizing adherence to medication and dietary modifications. We talked about the need for further dermatological evaluation of the suspicious skin lesion, with a referral to [facility] provided. I explained the significance of consistent atorvastatin usage and encouraged increased fluid intake to help prevent dizziness. I also acknowledged the patient's emotional state regarding family issues and offered support. The patient consented to repeat labs to evaluate cholesterol levels and kidney function. Assessment and Plan 1. Hyperlipidemia - Adherence to atorvastatin; repeat chol esterol labs today. 2. Vitamin D deficiency - Continue multivitamin. 3. Prediabetes - A1c 6.3%; manage with diet/lifestyle. 4. Basal cell carcinoma - Suspected lesion; refer to dermatology . Patient Instructions - Take atorvastatin daily as prescribed. - Continue with multivitamin daily. - Follow dietary and lifestyle recommend ations to manage blood sugar. - Increase fluid intake to reduce dizzin ess. - Contact [facility] for an ap pointment. - Follow up in six months with repeat la bs. Consent Patient was informed and verbally consented to the use of an ambient scribe for clinic note documentation during this visit. [facility] Medical History Colon cancer screening Laboratory exam ordered as part of routine general medical examination Routine physicl lab exam No pertinent family history Surgical History Hx of colonoscopy No pertinent past surgical history Social History Household Members: Spouse and Children Household Members Other:: 2 grandchildren Housing: House Are you a primary rn long term care to a significant other at home: No Do you presently have visiting nurse or other home services: No Alcohol intake: current Alcohol intake frequency: 0-2 drinks per day Alcohol type: beer Patient Tobacco Use Status: Never used Tobacco e-Cigarette/Vaping Use: Never Used Substance Use Type: Marijuana service: Yes ([employer]) Current occupational status: retired Current occupational exposures/hazards: No Gender identity: Male Cognitive needs: No Hearing needs: No Vision needs: No Questionnaire PHQ-9 Over the last 2 weeks, how often have you been bothered by any of the following problems? 1. Little interest or pleasure in doing things: not at all 2. Feeling down, depressed, or hopeless: not at all 3. Trouble falling or staying asleep, or sleeping too much: not at all 4. Feeling tired or having little energy: not at all 5. Poor appetite or overeating: not at all 6. Feeling bad about yourself - or that you are a failure or have let yourself or your family down: not at all 7. Trouble concentrating on things, such as reading the newspaper or watching television: not at all 8. Moving or speaking so slowly that other people could have noticed. Or the opposite - being so fidgety or restless that you have been moving around a lot more than usual: not at all 9. Thoughts that you would be better off or of hurting yourself in some way: not at all Total score: 0 Depression Screening Interpretation: Negative Depression Screening Done: Yes 85007 - PHQ-9 Billing: Yes Source: Developed by Drs. Ronald Kumar, Barbara Nelson, Louis Garcia and colleagues, with an educational suzette from [employer]. Thrive Questionnaire Date Thrive assessed: 05/01/24 I am a: Patient What is your living situation today?: I have a steady place to live Within the past 12 months, did the food you bought not last and you didn't have the money to get more?: Never true Within the past 12 months, did you worry whether your food would run out before you got money to buy more?: Never true Do you have trouble paying for medicines?: No Do you have trouble getting transportation to medical appointments?: No Do you have trouble paying your heating and electricity bill?: No Do you have trouble taking care of your child, family member or friend?: No Do you have trouble with day-to-day activities such as bathing, preparing meals, shopping, managing finances, etc.?: No Are you currently unemployed and looking for a job?: Yes Are you interested in more education?: No Please select the resources that you would like help with: None Currently or been in a relationship where the following occur: No concerns reported THRIVE Score: 0 VERONICA-7 AMB Questionnaire VERONICA-7 Date VERONICA - 7 assessed: 05/01/24 Source: Developed by Drs. Ronald Kumar, Barbara Nelson, Louis Garcia and colleagues, with an educational suzette from [employer]. Physical exam (Primary Care) Vital Signs: Last Vital Signs Temp 97.2 F 09/21/24 11:26 Pulse 58 09/21/24 11:26 Resp 13 09/21/24 11:26 BP 142/80 H 09/21/24 11:26 Pulse Ox 98 09/21/24 11:26 Oxygen Delivery Method Room Air 09/21/24 11:26 BMI result Body Mass Index 33.1 BMI Assessment/Plan discussion: High BMI High, discussed plan: lifestyle Tobacco/Smoking Status: Tobacco use Status Tobacco use date assessed 09/21/24 09/21/24 11:27 Patient Tobacco Use Status Never used Tobacco 09/21/24 11:22 e-Cigarette/Vaping Use Never Used 09/21/24 11:22 PHQ-9: PHQ-9 Score PHQ-9: Total score 0 09/21/24 11:30 Depression Screening Interpretation: Negative Thrive Assessment: Date of Thrive Assessment Date Thrive assessed 05/01/24 09/21/24 11:22 Currently or been in a relationship where the following occur: No concerns reported Advance Care Planning discussion: Exists, not on file Date of discussion: 08/12/23 Who was present: self Forms completed: Health Care Proxy and MOLST Time spent: 1-15 minutes, not on file Actual minutes spent: 10 Const Other: General: Well developed, well nourished, in no acute distress. Appears stated age. Head: Normocephalic, atraumatic. Eyes: Pupils are equal, round and reactive to light and accommodation. Conjunctivae are clear. Vision grossly normal. Ears: TMs clear AU, EACS WNL Nose: Patent, without discharge. Mouth: There are no ulcers or lesions noted. No inflammation, no post nasal drip, no plaques nor exudates. Neck: Supple, no adenopathy or thyromegaly. Lungs: Clear to auscultation bilaterally. No rales, rhonchi or wheeze noted. Good air flow in all [place]. Heart: Regular rate and rhythm. No murmurs, click, rubs or gallops are noted. Abdomen: Bowel sounds present in all quadrants. The abdomen is soft, nontender, with no masses or organomegaly noted. No hernias are noted. Musculoskeletal: Joints are nontender, without swelling, redness, or effusions. Range of motion is observed to be normal. Pulses: Peripheral pulses are equal and palpable bilaterally. Hairless. Extremities: No clubbing, cyanosis nor edema is noted. Neurologic: Gait and station normal. Cranial Nerves 2-12 intact. Motor strength grossly symmetrical and intact. No sensory loss. Balance normal. Skin: No rashes, Turgor is good. Skin color is good. Hair and nails are without abnormalities. See pictures in HPI Psych: Normal eye contact, affect and mood appropriate, and normal interactions. Patient is alert and appropriate to context. Results AMB Hemoglobin A1c 2 AMB Hemoglobin A1c 6.3 % Last Edit by Daniela Galicia MA on 09/21/24 11:36 Results Reviewed Results Reviewed: Laboratory Last Values Hgb A1c (Clinic) 6.3 % (4.0-6.0) H 09/21/24 11:31 Coding Level of Care Code Est Pt Prev Care 40-64y(33336) Diagnoses Encounter for general adult medical examination with abnormal findings Z00.01 Moderate mixed hyperlipidemia not requiring statin therapy E78.2 Hyperlipidemia type: moderate mixed hyperlipidemia not requiring statin therapy Prediabetes R73.03 Vitamin D deficiency E55.9 Obesity (BMI 30-39.9) E66.9 Family history of polyps in the colon Z83.719 Atypical squamoproliferative skin lesion D49.2 Additional Codes PHQ-9 - 79063 - PHQ-9 Billing: Yes ([id number]) Vital Signs *Quality* - Advance Care Planning discussion: Exists, not on file ([id number]) Vital Signs *Quality* - Time spent: 1-15 minutes, not on file ([id number]) Assessment & Plan Assessment & Plan (1) Encounter for general adult medical examination with abnormal findings: Onset Date: ~08/2024 Code(s): Z00.01 - Encounter for general adult medical examination with abnormal findings Category: Medical (2) Hyperlipidemia: Code(s): E78.5 - Hyperlipidemia, unspecified Category: Medical Qualifiers: Hyperlipidemia type: moderate mixed hyperlipidemia not requiring statin therapy Qualified Code(s): E78.2 - Mixed hyperlipidemia (3) Prediabetes: Code(s): R73.03 - Prediabetes Category: Medical (4) Vitamin D deficiency: Code(s): E55.9 - Vitamin D deficiency, unspecified Category: Medical (5) Obesity (BMI 30-39.9): Code(s): E66.9 - Obesity, unspecified Category: Medical (6) Family history of polyps in the colon: Comment: mother one polyp later in life Code(s): Z83.719 - Family history of colon polyps, unspecified Category: Medical (7) Atypical squamoproliferative skin lesion: Code(s): D49.2 - Neoplasm of unspecified behavior of bone, soft tissue, and skin Category: Medical Plan . Orders: Orders 2 AMB Hemoglobin A1c Today Z13.9 - Encounter for screening, unspecified Comprehensive Met. Panel Today E55.9 - Vitamin D deficiency, unspecified, E78.2 - Mixed hyperlipidemia, R73.03 - Prediabetes Lipid Panel Today E55.9 - Vitamin D deficiency, unspecified, E78.2 - Mixed hyperlipidemia, R73.03 - Prediabetes PSA, Ultra Sensitive Today E55.9 - Vitamin D deficiency, unspecified, E78.2 - Mixed hyperlipidemia, R73.03 - Prediabetes TSH reflex Free T4 Today E55.9 - Vitamin D deficiency, unspecified, E78.2 - Mixed hyperlipidemia, R73.03 - Prediabetes Vitamin B12 and Folate Today E55.9 - Vitamin D deficiency, unspecified, E78.2 - Mixed hyperlipidemia, R73.03 - Prediabetes Lipid Panel 6 Months E78.2 - Mixed hyperlipidemia, R73.03 - Prediabetes Hemoglobin A1c 6 Months E78.2 - Mixed hyperlipidemia, R73.03 - Prediabetes Vitamin D 25-OH Total Today E55.9 - Vitamin D deficiency, unspecified Referrals 2 Dermatology Referral D49.2 - Neoplasm of unspecified behavior of bone, soft tissue, and skin Patient Instructions: Health screenings for men You should visit your health care provider regularly, even if you feel healthy. The purpose of these visits is to: Screen for medical issues Assess your risk for future medical problems Encourage a healthy lifestyle Update vaccinations and other preventive care services Help you get to know your provider in case of an illness Information Even if you feel fine, you should still see your provider for regular checkups. These visits can help you avoid problems in the future. For example, the only way to find out if you have high blood pressure is to have it checked regularly. High blood sugar and high cholesterol level also may not have any symptoms in the early stages. Simple blood tests can check for these conditions. There are specific times when you should see your provider or receive specific health screenings. The [place] Preventive Services Task Force publishes a list of recommended screenings. Below are screening guidelines for men ages 40 to 64. BLOOD PRESSURE SCREENING Have your blood pressure checked at least once every year. Watch for blood pressure screenings in your area. Ask your provider if you can stop in to have your blood pressure checked. Ask your provider if you need your blood pressure checked more often if: You have diabetes, heart disease, kidney problems, or are overweight or have certain other health conditions You have a first-degree relative with high blood pressure You are Black Your blood pressure top number is from 120 to 129 mm Hg, or the bottom number is from 70 to 79 mm Hg If the top number is 130 mm Hg or greater or the bottom number is 80 mm Hg or greater, this is considered stage 1 hypertension. Schedule an appointment with your provider to learn how you can lower your blood pressure. Effects of age on blood pressure CHOLESTEROL SCREENING Cholesterol screening should begin at age 35 for men with no known risk factors for coronary heart disease. Repeat cholesterol screening should take place: Every 5 years for men with normal cholesterol levels More often if changes occur in lifestyle (including weight gain and diet) More often if you have diabetes, heart disease, kidney problems, or certain other conditions COLORECTAL CANCER SCREENING If you are under age 45, talk to your provider about getting screened. You may need to be screened if you have a strong family history of colon cancer or polyps. Screening may also be considered if you have risk factors such as a history of inflammatory bowel disease or polyps. If you are age 45 to 75, you should be screened for colorectal cancer. There are several screening tests available: A stool-based fecal occult blood (gFOBT) or fecal immunochemical test (FIT) every year A stool sDNA test every 1 to 3 years Flexible sigmoidoscopy every 5 years or every 10 years with stool testing FIT done every year CT colonography (virtual colonoscopy) every 5 years Colonoscopy every 10 years You may need a colonoscopy more often if you have risk factors for colorectal cancer, such as: Ulcerative colitis A personal or family history of colorectal cancer A history of growths in your colon called adenomatous polyps DENTAL EXAM Go to the dentist once or twice every year for an exam and cleaning. Your dentist will evaluate if you have a need for more frequent visits. DIABETES SCREENING All adults who do not have risk factors for diabetes should be screened starting at age 35 and repeated every 3 years. If you have other risk factors for diabetes, such as a first degree relative with diabetes, overweight or obesity, high blood pressure, prediabetes, or a history of heart disease, you may be tested more often. If you are overweight and have other risk factors, such as high blood pressure and are planning to become , screening is recommended. EYE EXAM Have an eye exam every 2 to 4 years ages 40 to 54 and every 1 to 3 years ages 55 to 64. Your provider may recommend more frequent eye exams if you have vision problems or glaucoma risk. Have an eye exam that includes an examination of your retina (back of your eye) at least every year if you have diabetes. IMMUNIZATIONS Commonly needed vaccines include: Flu shot: get one every year COVID-19 vaccine: ask your provider what is best for you Tetanus-diphtheria and acellular pertussis (Tdap) vaccine: have as one of your tetanus-diphtheria vaccines if you did not receive it as an adolescent Tetanus-diphtheria: have a booster (or Tdap) every 10 years Varicella vaccine: receive 2 doses if you never had chickenpox or the varicella vaccine and were born in 1980 or after Hepatitis B vaccine: receive 2, 3, or 4 doses, depending on your exact circumstances, if you did not receive these as a child or adolescent, until age 59 Shingles (herpes zoster) vaccine: at or after age 50 Ask your provider if you should receive other immunizations, especially if you have certain medical conditions, such as diabetes or are at increased risk for some diseases such as pneumonia. INFECTIOUS DISEASE SCREENING Screening for hepatitis C: all adults ages 18 to 79 should get a one-time test for hepatitis C. Screening for human immunodeficiency virus (HIV): all people ages 15 to 65 should get a one-time test for HIV. Depending on your lifestyle and medical history, you may need to be screened for infections such as syphilis, chlamydia, and other infections. LUNG CANCER SCREENING You should have an annual screening for lung cancer with low-dose computed tomography (LDCT) if: You are age 50 to 80 years AND You have a 20 pack-year smoking history AND You currently smoke or have quit within the past 15 years OSTEOPOROSIS SCREENING If you are age 50 to 64 and have risk factors for osteoporosis, you should discuss screening with your provider. Risk factors can include long-term steroid use, low body weight, smoking, heavy alcohol use, having a fracture after age 50, or a family history of hip fracture or osteoporosis. Osteoporosis PHYSICAL EXAM All adults should visit their provider from time to time, even if they are healthy. The purpose of these visits is to: Screen for diseases Assess risk of future medical problems Encourage a healthy lifestyle Update vaccinations and other preventive care services Maintain a relationship with a provider in case of an illness Your height, weight, and body mass index (BMI) should be checked at every exam. During your exam, your provider may ask you about: Depression and anxiety Diet and exercise Alcohol and tobacco use Safety, such as use of seat belts and smoke detectors Your medicines and risk for interactions PROSTATE CANCER SCREENING If you're 55 through 69 years old, before having the test, talk to your provider about the pros and cons of having a PSA test. Ask about: Whether screening decreases your chance of dying from prostate cancer. Whether there is any harm from prostate cancer screening, such as side effects from testing or overtreatment of cancer when discovered. Whether you have a higher risk of prostate cancer than others. If you are age 55 or younger, screening is not generally recommended. You should talk with your provider about if you have a higher risk for prostate cancer. Risk factors include: Having a family history of prostate cancer (especially a brother or father) Being If you choose to be tested, the PSA blood test is repeated over time (yearly or less often), though the best frequency is not known. Prostate examinations are no longer routinely done on men with no symptoms. Prostate cancer SKIN EXAM Your provider may check your skin for signs of skin cancer, especially if you're at high risk. People at high risk include those who have had skin cancer before, have close relatives with skin cancer, or have a weakened immune system. TESTICULAR EXAM The [place] Preventive Services Task Force (USPSTF) now recommends against performing testicular self-exams. Doing testicular self-exams has been shown to have little to no benefit.
[2024-09-21 11:26] VITALS: BP 142/80; PULSE 58; RESP 13; TEMP 36.2; O2SAT 98; BMI 33.1
== END 2024-09-21 11:56 | disposition home or self-care (01) ==
LOC: HO.HMCFM 11:19
PROVIDERS: PCP Nurse Practitioner Family; Visit Provider Nurse Practitioner Family
DX: Z00.00 Encounter for general adult medical examination without abnormal findings (principal); E78.2 Mixed hyperlipidemia; E66.9 Obesity, unspecified; Z68.33 Body mass index [BMI] 33.0-33.9, adult; R73.03 Prediabetes; E55.9 Vitamin D deficiency, unspecified; Z83.719 Family history of colon polyps, unspecified; D49.2 Neoplasm of unspecified behavior of bone, soft tissue, and skin

== ENCOUNTER → 2024-09-21 11:18 | Outpatient (BNVA) | payer OTHER, SELFPAY | PROVIDERS: PCP Nurse Practitioner Family; Visit Provider Nurse Practitioner Family | DX: Z13.89 Encounter for screening for other disorder (principal) | CPT/HCPCS: 83036; 96127; 99396 ==

== ENCOUNTER 2024-09-21 11:59 | Outpatient (REF) | payer OTHER, SELFPAY ==
[2024-09-21 14:56] LABS: Alanine Aminotransferase 74 U/L (0-40); Albumin Level 4.4 g/dL (3.5-5.0); Alkaline Phosphatase 60 U/L (39-117); Anion Gap 13 (12-20); Aspartate Amino Transferase 43 U/L (5-37); Bilirubin Total 0.4 mg/dL (0.0-1.0); Blood Urea Nitrogen 14 mg/dL (9-16); Calcium 9.6 mg/dL (8.4-10.2); Carbon Dioxide 26 mmol/L (22-29); Chloride 105 mmol/L (96-108); Cholesterol 359 mg/dL (<200); Estimated Glomerular Filt Rate > 60; Glucose Random 121 mg/dL (60-115); HDL Cholesterol 42 mg/dL (>40); Potassium 4.7 mmol/L (3.3-5.1); Sodium 139 mmol/L (135-145); Total Protein 7.1 g/dL (6.5-8.0); Triglycerides 788 mg/dL (<150)
[2024-09-21 15:02] LABS: TSH reflex Free T4 2.58 uIU/mL (0.32-4.0); Vitamin D 25-OH Total 37.6 ng/mL (>30)
[2024-09-21 15:13] LABS: Folate 9.9 ng/mL (> or = 4.0); Vitamin B12 484 pg/mL (200-900)
[2024-09-26 22:02] LABS: PSA, Ultra Sensitive 1.31 ng/mL
== END 2024-09-21 12:00 | disposition home or self-care (01) ==
LOC: HO.WFDLDS 11:59
PROVIDERS: Visit Provider Nurse Practitioner Family
DX: E78.2 Mixed hyperlipidemia (principal); R73.03 Prediabetes; E55.9 Vitamin D deficiency, unspecified
CPT/HCPCS: 36415; 80053; 80061; 82306; 82607; 82746; 83036; 84153; 84443; 96127; 99396

== ENCOUNTER 2025-02-28 08:48 | Outpatient (REF) | payer OTHER, SELFPAY ==
[2025-02-28 11:42] LABS: Total Hemoglobin (HGBA1C) 3710.9457 umol/L
[2025-02-28 12:03] LABS: Alanine Aminotransferase 98 U/L (0-40); Albumin Level 4.5 g/dL (3.5-5.0); Alkaline Phosphatase 72 U/L (39-117); Anion Gap 12 (12-20); Aspartate Amino Transferase 56 U/L (5-37); Blood Urea Nitrogen 18 mg/dL (9-16); Calcium 9.3 mg/dL (8.4-10.2); Carbon Dioxide 25 mmol/L (22-29); Chloride 105 mmol/L (96-108); Cholesterol 410 mg/dL (<200); Estimated Glomerular Filt Rate > 60; HDL Cholesterol 35 mg/dL (>40); Potassium 4.3 mmol/L (3.3-5.1); Sodium 138 mmol/L (135-145); Total Protein 7.3 g/dL (6.5-8.0); Triglycerides 1226 mg/dL (<150)
== END 2025-02-28 08:49 | disposition home or self-care (01) ==
LOC: HO.WFDLDS 08:48
PROVIDERS: PCP Nurse Practitioner Family; Visit Provider Nurse Practitioner Family
DX: E78.2 Mixed hyperlipidemia (principal); Z28.21 Immunization not carried out because of patient refusal; R73.03 Prediabetes; E55.9 Vitamin D deficiency, unspecified; E66.9 Obesity, unspecified; F10.20 Alcohol dependence, uncomplicated; Z68.32 Body mass index [BMI] 32.0-32.9, adult; Z79.899 Other long term (current) drug therapy
CPT/HCPCS: 36415; 80053; 80061; 82306; 83036; 96127; 99212

== ENCOUNTER 2025-02-28 08:48 | Outpatient (AMB) | payer OTHER, SELFPAY ==
--- NOTE | 2025-02-28 08:50 | A.OFFPC_ITS ---
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: No Allergies No Known Allergies Allergy (Verified 02/28/25 08:56) Medication List - Last Reconciled 02/28/25 by Anca Barnett, PSYCHIATRIC SPECIALIST- atorvastatin 40 mg PO BEDTIME multivitamin 1 tab PO DAILY Tobacco use date assessed: 02/28/25 Dental Screening Dental Screen Date: 02/28/25 Did you have a dental visit in the last 12 months?: Yes Did you have a dental problem in the last 6 months where you did not have access to dental care?: No Was dental information given to patient?: Patient has dentist HPI HPI Comments History of Present Illness Details 59 y/o M with prediabetes, hyperlipidemi a, Vit D Def, pre glaucoma right eye, positive rheumatoid factor, seasonal allergies, previous cocaine use, erectile dysfunction, diverticulosis, osteoarthritis of bilat hips and knees Family hx: son had a stroke; may need heart surgery. otherwise no changes Social: , has children, semi-retired; has custody of sons children Health Maintenance: Colonoscopy 05/06/24 Normal colon and terminal ileum mucosa, Diverticulosis, Internal hemorrhoids repeat colonoscopy in 5 years due to quality of prep. Tdap 12/2023 Flu declined 02/28/25 ACP: MOLST completed today. Healthcare proxy need signature from the primary in the alternate agent. He will bring this with him to the next office visit. Specialists: [facility] first appt June 2025 History of Present Illness The patient is a 59-year-old male presenting for a 6-month follow-up of hyperlipidemia and prediabetes. Hyperlipidemia: - The patient was started on atorvastati n 40 mg at his last visit but admits to inconsistent use, having taken it only a few times. - Lab results from the summer showed sig nificantly elevated triglycerides at 788 and elevated liver enzymes. - He reports being counseled on the risk of pancreatitis and the need to seek immediate medical attention for abdominal pain due to his high triglycerides. - The patient's inconsistent medication use is partly due to concern about taking it after consuming beer. Prediabetes: - The patient has a history of prediabet es and is due for a follow-up Hemoglobin A1c test. Obesity: - The patient has obesity with a BMI of 32.9. - His weight is down one pound since the last visit, and he reports a small amount of increased physical activity. Alcohol and Tobacco Use: - The patient reports drinking beer, whi ch he attributes to boredom rather than mood issues. - He tries to not drink on consecutive n ights but sometimes does. Skin Lesion: - The patient has a persistent red skin area that has not resolved since the last visit. - He has a scheduled dermatology appoint ment in June to evaluate the lesion. Past Medical History - Hyperlipidemia, with triglycerides of 788 and elevated liver enzymes in summer. - Prediabetes. - Obesity (BMI 32.9). - Current alcohol use. Review of Systems - General: Denies any new medical issues . - Cardiovascular: Denies chest pain. - Respiratory: Denies shortness of breat h. - Gastrointestinal: Denies abdominal cecilia n. - Integumentary: Reports a persistent re d area on the skin which has not resolved. - Musculoskeletal: Denies swelling in le gs. Physical Exam General: Well developed, well nourished, in no acute distress. Appears stated age. Obesity with a BMI of 32.9. Head: Normocephalic, atraumatic. Eyes: Pupils are equal, round and reactive to light and accommodation. Conjunctivae are clear. Scleras nonicteric Lungs: Clear to auscultation bilaterally. No rales, rhonchi or wheeze noted. Good air flow in all delacruz. Heart: Regular rate and rhythm. No murmurs, click, rubs or gallops are noted. Abdomen: Bowel sounds present in all quadrants. The abdomen is soft, nontender, with no masses or organomegaly noted. No hernias are noted. Musculoskeletal: Joints are nontender, without swelling, redness, or effusions. Pulses: Peripheral pulses are equal and palpable bilaterally. Extremities: No clubbing, cyanosis nor edema is noted. Psych: Mood and affect appropriate. Results - Labs (from summer): Triglycerides were 788 and liver enzymes were elevated. Medical Decision Making The patient is a 59-year-old male here for a 6-month follow-up on hyperlipidemia and prediabetes. He reports non-adherence to atorvastatin 40 mg, which he was started on at the last visit. His lab results from the summer showed triglycerides of 788 and elevated liver enzymes, putting him at significant risk for pancreatitis. His elevated cholesterol also increases his risk for cardiac disease, heart attack, and stroke. His non-adherence appears multifactorial, including forgetfulness and concern about taking the medication with alcohol. I provided education on strategies to improve adherence, such as taking it in the morning, and reassured him it is not contraindicated with his alcohol use. His alcohol is likely the primary drivers of his severe hypertriglyceridemia. The patient is due for repeat labs, and an order has been placed for a lipid panel, hemoglobin A1c, vitamin D, and liver enzymes. The plan is to have him restart atorvastatin daily and reassess based on today's lab results. We discussed a harm reduction approach to his alcohol consumption, advising a gradual decrease. He was also encouraged to undergo a LifeScreen test for further cardiovascular risk stratification. Follow-up is scheduled for his physical in six months, though an earlier visit may be necessary depending on the lab findings. Plan 1. Hyperlipidemia - The patient has been non-adherent with atorvastatin 40 mg. - Risks of pancreatitis from high trigly cerides (788 in summer) and cardiovascular events from high cholesterol were discussed. - Plan is to obtain labs today, includin g a lipid panel and liver enzymes. - Strongly encouraged the patient to res ume taking atorvastatin 40 mg daily, starting tomorrow, and discussed adherence strategies. - Recommended pursuing LifeScreen for ad ditional cardiovascular risk screening. 2. Prediabetes - Ordered a Hemoglobin A1c test to be dr gomez today to monitor his prediabetic status. 3. Alcohol Use - Discussed his alcohol consumption, whi ch he states is due to boredom. - Recommended a gradual reduction in alc ohol intake rather than abrupt cessation. 4. Skin Lesion - The patient will continue with his [facility] dermatology appointment in June for evaluation of a persistent red skin lesion. 5. Health Maintenance - The patient declined the influenza vac cine. - Ordered a vitamin D level check. - Results will be communicated to the yanet ogdoy by phone. - The next follow-up is a physical in 6 months, with a possibility of an earlier visit depending on lab results. Patient Instructions - Please go to the lab today to have you r blood drawn. We will be checking your cholesterol, blood sugar (A1c), liver function, and vitamin D levels. - Begin taking your atorvastatin 40 mg p ill every day starting tomorrow. To help you remember, you can try taking it in the morning with your coffee. - It is very important to take this medi cation to lower your risk of heart at tack, stroke, and pancreas inflammation (pancreatitis). - I recommend you consider getting the L ifeScreen test, which checks the health of your arteries. - Try to gradually reduce the amount of beer you drink. Even cutting back by one beer a day can help improve your health. - Keep your dermatology appointment in [facility] to have the red spot on your skin checked. - We will call you with your lab results once they are available. - Your next appointment is in 6 months f or a physical exam. We will let you know if you need to come in sooner based on your lab results. Consent Patient was informed and verbally consented to the use of an ambient scribe for clinic note documentation during this visit. Total time spent caring for the patient today was 40 minutes. This includes time spent before the visit reviewing the chart, time spent during the visit, and time spent after the visit on documentation, reviewing laboratory results, diagnostic imaging, medications, performing a medically necessary evaluation, counseling on diagnoses, care coordination, ordering appropriate tests, ordering appropriate medications, review of tests performed by other providers, reporting test results with the patient, communication with other healthcare providers. [facility] Medical History Colon cancer screening Laboratory exam ordered as part of routine general medical examination Routine physicl lab exam No pertinent family history Surgical History Hx of colonoscopy No pertinent past surgical history Social History Household Members: Spouse and Children Household Members Other:: 2 grandchildren Housing: House Are you a primary customer care associate to a significant other at home: No Do you presently have visiting nurse or other home services: No 75 years or older and lives alone: No Alcohol intake: current Alcohol intake frequency: 0-2 drinks per day Alcohol type: beer Patient Tobacco Use Status: Never used Tobacco e-Cigarette/Vaping Use: Never Used Second Hand Smoke Exposure: No Substance Use Type: Marijuana service: Yes ([employer]) Current occupational status: retired Current occupational exposures/hazards: No Gender identity: Male Cognitive needs: No Hearing needs: No Vision needs: No Questionnaire PHQ-9 Over the last 2 weeks, how often have you been bothered by any of the following problems? 1. Little interest or pleasure in doing things: not at all 2. Feeling down, depressed, or hopeless: not at all 3. Trouble falling or staying asleep, or sleeping too much: not at all 4. Feeling tired or having little energy: not at all 5. Poor appetite or overeating: not at all 6. Feeling bad about yourself - or that you are a failure or have let yourself or your family down: not at all 7. Trouble concentrating on things, such as reading the newspaper or watching television: not at all 8. Moving or speaking so slowly that other people could have noticed. Or the opposite - being so fidgety or restless that you have been moving around a lot more than usual: not at all 9. Thoughts that you would be better off or of hurting yourself in some way: not at all Total score: 0 Depression Screening Interpretation: Negative Depression Screening Done: Yes 68028 - PHQ-9 Billing: Yes Source: Developed by Drs. Ronald Kumar, Barbara Nelson, Louis Garcia and colleagues, with an educational suzette from [employer]. Thrive Questionnaire Date Thrive assessed: 02/28/25 I am a: Patient What is your living situation today?: I have a steady place to live Within the past 12 months, did the food you bought not last and you didn't have the money to get more?: Never true Within the past 12 months, did you worry whether your food would run out before you got money to buy more?: Never true Do you have trouble paying for medicines?: No Do you have trouble getting transportation to medical appointments?: No Do you have trouble paying your heating and electricity bill?: No Do you have trouble taking care of your child, family member or friend?: No Do you have trouble with day-to-day activities such as bathing, preparing meals, shopping, managing finances, etc.?: No Are you currently unemployed and looking for a job?: Yes Are you interested in more education?: No Please select the resources that you would like help with: None Currently or been in a relationship where the following occur: No concerns reported THRIVE Score: 0 VERONICA-7 AMB Questionnaire VERONICA-7 Date VERONICA - 7 assessed: 02/28/25 Feeling nervous, anxious, or on edge: 0 = Not at all Not being able to stop or control worryin = Not at all Worrying too much about different things: 0 = Not at all Trouble relaxin = Not at all Being so restless that it is hard to sit still: 0 = Not at all Becoming easily annoyed or irritable: 0 = Not at all Feeling afraid as if something awful might happen: 0 = Not at all Total VERONICA-7 score (0-4 normal; 5-9 mild; 10-14 moderate; 15-21 severe): 0 Source: Developed by Drs. Ronald Kumar, Barbara Nelson, Louis Garcia and colleagues, with an educational suzette from [employer]. VERONICA-7 Assessment Billing VERONICA-7 Assessment Tool: VERONICA-7 Assessment 61412 Physical exam (Primary Care) Vital Signs: Last Vital Signs Temp 97.6 F 02/28/25 08:54 Pulse 60 02/28/25 08:54 Resp 13 02/28/25 08:54 BP 132/70 02/28/25 08:54 Pulse Ox 98 02/28/25 08:54 Oxygen Delivery Method Room Air 02/28/25 08:54 BMI result Body Mass Index 32.9 Tobacco/Smoking Status: Tobacco use Status Tobacco use date assessed 02/28/25 02/28/25 08:56 Patient Tobacco Use Status Never used Tobacco 02/28/25 08:51 e-Cigarette/Vaping Use Never Used 02/28/25 08:51 PHQ-9: PHQ-9 Score PHQ-9: Total score 0 02/28/25 08:51 Depression Screening Interpretation: Negative Thrive Assessment: Date of Thrive Assessment Date Thrive assessed 02/28/25 02/28/25 08:51 Currently or been in a relationship where the following occur: No concerns reported Coding Level of Care Code Est Pt Level 5 (98062) Complex EM visit Add On G2211 Diagnoses Moderate mixed hyperlipidemia not requiring statin therapy E78.2 Hyperlipidemia type: moderate mixed hyperlipidemia not requiring statin th erapy Prediabetes R73.03 Obesity (BMI 30-39.9) E66.9 Influenza vaccination declined Z28.21 Vitamin D deficiency E55.9 Uncomplicated alcohol dependence F10.20 Substance use status: uncomplicated Additional Codes VERONICA-7 Assessment Billing - VERONICA-7 Assessment Tool: VERONICA-7 Assessment 89659 ([id number]) PHQ-9 - 48357 - PHQ-9 Billing: Yes ([id number]) Assessment & Plan Assessment & Plan (1) Hyperlipidemia: Code(s): E78.5 - Hyperlipidemia, unspecified Category: Medical Qualifiers: Hyperlipidemia type: moderate mixed hyperlipidemia not requiring statin therapy Qualified Code(s): E78.2 - Mixed hyperlipidemia (2) Prediabetes: Code(s): R73.03 - Prediabetes Category: Medical (3) Obesity (BMI 30-39.9): Code(s): E66.9 - Obesity, unspecified Category: Medical (4) Influenza vaccination declined: Onset Date: ~02/28/25 Code(s): Z28.21 - Immunization not carried out because of patient refusal Category: Medical (5) Vitamin D deficiency: Code(s): E55.9 - Vitamin D deficiency, unspecified Category: Medical (6) Alcohol dependence: Code(s): F10.20 - Alcohol dependence, uncomplicated Category: Medical Qualifiers: Substance use status: uncomplicated Qualified Code(s): F10.20 - Alcohol dependence, uncomplicated Plan . Orders: Orders Vitamin D 25-OH Total Today E55.9 - Vitamin D deficiency, unspecified Comprehensive Met. Panel Today E78.2 - Mixed hyperlipidemia, R73.03 - Prediabetes
[2025-02-28 08:54] VITALS: BP 132/70; PULSE 60; RESP 13; TEMP 36.4; O2SAT 98; BMI 32.9
--- OUTSIDE RECORDS SUMMARY | 2025-02-28 09:17 | XMS_ITS | Clinical Summary ---
Author Organization [facility] Address [address] [id number] Phone Care Team Providers Care Sas Administrator Name Role Phone Anca Bansal PROMOTIONAL MARKETING AGENT Primary Care Provider Allergies No known active allergies Medications atorvastatin (LIPITOR) 40 MG tablet Take 40 mg by mouth daily. Active Social History Tobacco Use Types Packs/Day Years Used Date Smoking Tobacco: Never Smokeless Tobacco: Never Tobacco Cessation:Counseling Given: Not Answered Education Answer Date Recorded Are you interested in more education? Not on rudi e 11/10/2024 Are you concerned about learning? Not on file 11/10/2024 No 11/10/2024 No 11/10/2024 Digital Access Answer Date Recorded No 11/10/2024 No 11/10/2024 Reliable internet access at home? Not on file 11/10/2024 Device with a working camera? Not on file Sex and Gender Information Value Date Recorded Sex Assigned at Not on file Legal Sex Male 9:43 PM EDT Gender Identity Not on file Sexual Orientation Not on file Last Filed Vital Signs Vital Sign Reading Time Taken Comments Blood Pressure 144/88 11/10/2024 9:06 AM EDT Pulse 65 11/10/2024 9:06 AM EDT Temperature 36.9 C (98.4 F) 11/10/2024 9:06 AM EDT Respiratory Rate 18 11/10/2024 9:06 AM EDT Oxygen Saturation 98% 11/10/2024 9:06 AM EDT Inhaled Oxygen Concentration - - Weight - - Height - - Body Mass Index - - Plan of Treatment Health Maintenance Due Date Last Done Comments LIPID PANEL 1963 DEPRESSION SCREENING 1975 HEPATITIS C SCREENING 1981 HIV ONE-TIME SCREENING (18-6 5 YEARS) 1981 COLOGUARD 2008 COLONOSCOPY 2008 COLORECTAL CANCER SCREENING 2008 FIT TEST 2008 FOBT 2008 SIGMOIDOSCOPY 2008 VIRTUAL COLONOSCOPY 2008 PNEUMOCOCCAL VACCINES (50+ years) (1 of 1 - PCV) 2013 ZOSTER VACCINES (1 of 2) 2013 INFLUENZA VACCINE (#1) 2024 4, 04/08/2009, 04/08/2009 COVID-19 VACCINE (3 - 2024-2 6 season) 2024 09/07/2020, 08/17/2020 Adult Td,Tdap Booster 12/28/2033 12/29/2023 , 06/05/2013, 03/02/2007 RSV VACCINE (1 - 1-dose 75+ series) 2038 SMOKING STATUS SCREENING (On ce After 26 Yrs) Completed 11/10/2024 HEPATITIS A VACCINES Aged Out No long er eligible based on patient's age to complete this topic HIB VACCINES Aged Out No longer eligi ble based on patient's age to complete this topic MENINGOCOCCAL VACCINES (ACWY) Aged Out No longer eligible based on patient's age to complete this topic MENINGOCOCCAL VACCINES (B) Aged Out N o longer eligible based on patient's age to complete this topic Medical Devices Not on file Insurance [facility] [place] [address] [place] [address] [place] [place] [address] [place] [address] [place] [address] [employer] Care Teams Sas Administrator Relationship Specialty Start Date End Date Anca Bansal NP [address] [place] [address] [place] [id number] [email or web address] PCP - General Nurse Practitioner 11/10/24 Additional Source Comments The information contained in this document represents components of the legal health record. It is not the complete legal health record.[facility]
--- OUTSIDE RECORDS SUMMARY | 2025-02-28 09:17 | XMS_ITS ---
Author Name [facility] Organization Unknown Care Team Organization Name Specialty Phone Email Start Date End Da te [facility] Shonda Davis Primary Care 03/03/2022 4
--- OUTSIDE RECORDS SUMMARY | 2025-02-28 09:17 | XMS_ITS | Patient Health Record ---
Author Organization [facility] Address [address] [place] [id number] Care Team Providers Care C D Reactor Operator Name Role Phone Maribel Rothman M.D. Primary Care Provider Unavail reyna Houston Jr Wyatt Unavailable Reason For Referral No Information Medications Medication SIG (Take, Route, Frequency, Duration) Notes Start Date End Date Status Advil as needed Active Social History Tobacco Use: Social History Observation Description Date Details (start date - stop date) Never Smoker NA - NA Tobacco Use/Smoking Question Answer Notes Patient is a nonsmoker Alcohol Screen Question Answer Notes Did you have a drink contain ing alcohol in the past year? Yes How often did you have a dri nk containing alcohol in the past year? Monthly or less (1 point) How many drinks did you have on a typical day when you were drinking in the past year? 3 or 4 drinks (1 point) How often did you have 6 or more drinks on one occasion in the past year? Never (0 point) Points 2 Interpretation Negative Section Notes: occasional beer occasional beer Problems Problem Type SNOMED Code ICD Code Onset Dates Problem Status W/U Status Risk Notes Problem Colon cancer screening (907687932) Colon cancer screening (Z12.11) Active confirmed Problem Irritable bowel syndrome characterized by constipation (290772076) Irritable bowel syndrome with constipation (K58.1) Active confirmed Problem Altered bowel function (93007190) Change in bowel function (R19.8) Active confirmed Plan Of Treatment Pending Test Test Name Order Date CBC w/o DIFF 09/15/2017 TSH REFLEX FREE T4 09/15/2017 Insurance Providers Payer Name Payer Address Payer Phone Subscriber Number Group Number Insured Name Patient Relationship to Insured Coverage Start Date Coverage End Date [facility] [employer] [address] [place] [address] [id number] [employer] BOO Self - patient is the insured Medical (General) History Medical History History ICD Code Denies PR,DM,CVA,Lung disease,renal dise ase Surgical History Surgery Date(Month/Year) deviated septum
== END 2025-02-28 09:16 | disposition home or self-care (01) ==
LOC: HO.HMCFM 08:49
PROVIDERS: PCP Nurse Practitioner Family; Visit Provider Nurse Practitioner Family
DX: E78.2 Mixed hyperlipidemia (principal); R73.03 Prediabetes; E66.9 Obesity, unspecified; Z28.21 Immunization not carried out because of patient refusal; E55.9 Vitamin D deficiency, unspecified; F10.20 Alcohol dependence, uncomplicated; Z68.32 Body mass index [BMI] 32.0-32.9, adult